=== PATIENT | female | born 1965 | race Caucasian/White ===

== ENCOUNTER 2018-10-18 15:39 | Inpatient (IN) | payer OTHER ==
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
[2018-10-18] MEDS ORDERED: NS 0.9% 1000 ML** 2,000 ML IV SCH (16:30)
[2018-10-18] MEDS ORDERED: NS 0.9% 1000 ML** 1,000 ML IV ONE (16:31)
[2018-10-18 17:04] LABS: Urine Appearance Clear; Urine Bacteria Absent (Absent); Urine Bilirubin Negative (Negative); Urine Blood Negative (Negative); Urine Color Yellow; Urine Glucose Negative (Negative); Urine Ketones Negative (Negative); Urine Nitrite Negative (Negative); Urine Protein Negative (Negative); Urine Red Blood Cell Trace(0-2/hpf) (Absent); Urine Specific Gravity 1.006 (1.010-1.030); Urine Urobilinogen Negative (Negative); Urine White Blood Cell Trace(0-5/hpf) (Absent)
[2018-10-18 17:50] LABS: Barbiturates Urine Screen None Detected (None Detect); Benzodiazepine Urine Screen None Detected (None Detect); Urine Cannabinoids Screen Presumptive Positive (None Detect)
[2018-10-18 18:13] LABS: ABS Basophils 0.1 10^3/ul (0-0.2); ABS Eosinophils 0.1 10^3/ul (0-0.6); ABS Lymphocytes 2.7 10^3/ul (1.0-4.8); ABS Monocytes 0.9 10^3/ul (0-0.8); ABS Neutrophils 3.6 10^3/ul (1.5-7.7); ABS Nucleated RBC 0 10^3/ul; Hematocrit 36 % (35-47); Hemoglobin 11.9 g/dl (12.0-16.0); Mean Corpuscular HGB Conc 33 g/dl (31-36); Mean Corpuscular Hemoglobin 28 pg (27-31); Mean Corpuscular Volume 84 fL (80-97); Mean Platelet Volume 8.1 fL (7.4-10.4); Nucleated Red Blood Cells % 0; Platelet Count 420 10^3/ul (150-450); Red Blood Count 4.25 10^6/ul (4.00-5.40); Red Cell Distribution Width 18 % (10.5-15); White Blood Count 7.4 10^3/ul (3.5-10.8)
[2018-10-18 18:17] LABS: INR 0.84 (0.77-1.02)
[2018-10-18 18:28] LABS: ALT 35 U/L (7-52); AST 30 U/L (13-39); Albumin/Globulin Ratio 1.2 (1-3); Alkaline Phosphatase 98 U/L (34-104); Anion Gap 7 mmol/L (2-11); BUN/Creatinine Ratio 26.1 (8-20); Blood Urea Nitrogen 24 mg/dL (6-24); CO2 Carbon Dioxide 22 mmol/L (22-32); Calcium 9.5 mg/dL (8.6-10.3); Chloride 109 mmol/L (101-111); Creatine Kinase 226 U/L (10-223); EGFR African American 77.3 (>60); EGFR Non-African American 63.9 (>60); Globulin 3.3 g/dL (2-4); Glucose 91 mg/dL (70-100); Magnesium 2.1 mg/dL (1.9-2.7); Sodium 138 mmol/L (135-145); Total Protein 7.3 g/dL (6.4-8.9)
[2018-10-18 18:31] LABS: HDL Cholesterol 81.6 mg/dL
[2018-10-18 18:44] LABS: Acetaminophen < 15 mcg/mL; Alcohol < 10 mg/dL (<10); Salicylate < 2.50 mg/dL (<30)
[2018-10-18 18:58] LABS: TSH (Thyroid Stimulating Horm) 2.12 mcIU/mL (0.34-5.60)
[2018-10-18] MEDS ORDERED: HYDROmorphone INJ1* 1 MG/ML SYRINGE IV ONE (19:04)
[2018-10-18] MEDS ORDERED: Iohexol 350* (CONTRAST) 500 ML MDV IV ONE (19:09)
--- NOTE | 2018-10-18 19:11 | ED ---
Progress - Progress Note Progress Note: Ultrasound IV placement procedure performed. Course/Dx - Course Course Of Treatment: Ultrasound IV placement performed. - Diagnoses Provider Diagnoses: Dysarthria, Dysphasia, Carpopedal spasm, Muscle cramp, Black stool, Hypertension, poor control, Helicobacter positive gastritis During the Visit The Following Alert/Code Occurred: Code Telles - 16:32 - Provider Notifications Time Discussed With Above Provider: 18:16 Instructed by Provider To: Other - Dr. Venegas, hospitalist, wants to wait for labs and CTA. Discharge - Sign-Out/Discharge Documenting (check all that apply): Patient Departure - Procedure note Patient Received Moderate/Deep Sedation with Procedure: No - Discharge Plan Condition: Good Disposition: ADMITTED TO [facility] - Billing Disposition and Condition Condition: GOOD Disposition: Admitted to [facility] - Attestation Statements Document Initiated by Soniae: Yes Documenting Scribe: Janey Cohen Provider For Whom Shade is Documenting (Include Credential): Dr. Kurt Thomas MD Scribe Attestation: I, Janey Cohen, scribed for Dr. Kurt Thomas MD on 11/10/18 at 0727. Scribe Documentation Reviewed: Yes Provider Attestation: The documentation as recorded by the Janey low accurately reflects the service I personally performed and the decisions made by me, Dr. Kurt Thomas MD Status of Scribe Document: Viewed
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
[2018-10-18] MEDS: Benztropine TAB* 1 MG PO SCH (22:41)
[2018-10-18] MEDS: Metoprolol Tartrate TAB* 50 mg PO SCH (22:41)
[2018-10-18] MEDS: Gabapentin CAP(*) 300 MG PO SCH (22:42)
[2018-10-18] MEDS: Cyclobenzaprine TAB* 10 MG PO PRN (22:43)
[2018-10-18] MEDS: Pantoprazole TAB * 40 MG TAB PO SCH (22:44)
[2018-10-18] MEDS: amLODIPine TAB* 5 MG PO SCH (22:44)
[2018-10-18] MEDS: QUEtiapine TAB* 100 MG PO SCH (22:44)
[2018-10-18] MEDS: cloNIDine TAB* 0.1 MG PO SCH (22:45)
[2018-10-19] MEDS: Morphine 4 MG/ML VIAL (1 ml) 4 MG/ML VIAL IV PRN ×5 (01:05→20:48)
[2018-10-19] MEDS: CMCS: Varenicline (NF) 1 MG TAB PO SCH ×2 (09:42→20:47)
[2018-10-19] MEDS: Gabapentin CAP(*) 300 MG PO SCH ×3 (09:42→20:45)
[2018-10-19] MEDS: Benztropine TAB* 1 MG PO SCH ×2 (09:42→20:45)
[2018-10-19] MEDS: QUEtiapine TAB* 25 MG PO SCH (09:42)
[2018-10-19] MEDS: Citalopram TAB* 40 MG PO SCH (09:43)
[2018-10-19] MEDS: Pantoprazole TAB * 40 MG TAB PO SCH ×2 (09:43→20:46)
[2018-10-19] MEDS: Metoprolol Tartrate TAB* 50 mg PO SCH ×2 (09:43→20:44)
[2018-10-19] MEDS: cloNIDine TAB* 0.1 MG PO SCH ×3 (09:43→20:46)
[2018-10-19] MEDS: Aspirin 81 mg CHEW TAB* 81 MG TAB.CHEW PO SCH (09:43)
[2018-10-19] MEDS: Cyclobenzaprine TAB* 10 MG PO PRN (09:43)
[2018-10-19] MEDS: amLODIPine TAB* 5 MG PO SCH (09:44)
[2018-10-19] MEDS: Cyclobenzaprine TAB* 10 MG PO SCH ×3 (13:40→20:46)
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
[2018-10-19] MEDS ORDERED: Atorvastatin* 40 MG TAB PO SCH (17:00)
[2018-10-19] MEDS: Enoxaparin(*) 40 MG/0.4 ML SYR SUBCUT SCH (17:30)
[2018-10-19] MEDS: Atorvastatin* 80 MG TAB PO SCH (17:30)
[2018-10-19] MEDS: QUEtiapine TAB* 100 MG PO SCH (20:47)
[2018-10-19] MEDS: PROCHLORPERAZINE INJ 5 MG/ML 2 ML VIAL IV PRN (20:48)
[2018-10-20] MEDS: Morphine 4 MG/ML VIAL (1 ml) 4 MG/ML VIAL IV PRN ×5 (02:43→21:40)
[2018-10-20 06:38] LABS: ABS Basophils 0 10^3/ul (0-0.2); ABS Eosinophils 0.2 10^3/ul (0-0.6); ABS Lymphocytes 2.1 10^3/ul (1.0-4.8); ABS Monocytes 0.5 10^3/ul (0-0.8); ABS Neutrophils 2.5 10^3/ul (1.5-7.7); ABS Nucleated RBC 0 10^3/ul; Eosinophil % 3.5 %; Hematocrit 37 % (35-47); Hemoglobin 11.9 g/dl (12.0-16.0); Lymphocyte % 39.5 %; Mean Corpuscular HGB Conc 32 g/dl (31-36); Mean Corpuscular Hemoglobin 27 pg (27-31); Mean Corpuscular Volume 85 fL (80-97); Mean Platelet Volume 7.9 fL (7.4-10.4); Nucleated Red Blood Cells % 0.2; Platelet Count 369 10^3/ul (150-450); Red Blood Count 4.36 10^6/ul (4.00-5.40); Red Cell Distribution Width 18 % (10.5-15); White Blood Count 5.4 10^3/ul (3.5-10.8)
[2018-10-20 07:03] LABS: Albumin 3.6 g/dL (3.2-5.2); Albumin/Globulin Ratio 1.2 (1-3); BUN/Creatinine Ratio 38.6 (8-20); Calcium 9.8 mg/dL (8.6-10.3); EGFR African American 81.3 (>60); EGFR Non-African American 67.2 (>60); Potassium 4.5 mmol/L (3.5-5.0); Total Bilirubin 0.3 mg/dL (0.2-1.0); Total Protein 6.6 g/dL (6.4-8.9)
[2018-10-20] MEDS: amLODIPine TAB* 5 MG PO SCH (07:58)
[2018-10-20] MEDS: Aspirin 81 mg CHEW TAB* 81 MG TAB.CHEW PO SCH (07:59)
[2018-10-20] MEDS: Citalopram TAB* 40 MG PO SCH (07:59)
[2018-10-20] MEDS: Cyclobenzaprine TAB* 10 MG PO SCH ×3 (08:00→21:38)
[2018-10-20] MEDS: QUEtiapine TAB* 25 MG PO SCH (08:00)
[2018-10-20] MEDS: Pantoprazole TAB * 40 MG TAB PO SCH ×2 (08:00→21:39)
[2018-10-20] MEDS: Metoprolol Tartrate TAB* 50 mg PO SCH ×2 (08:01→21:38)
[2018-10-20] MEDS: cloNIDine TAB* 0.1 MG PO SCH ×3 (08:01→21:37)
[2018-10-20] MEDS: CMCS: Varenicline (NF) 1 MG TAB PO SCH ×2 (08:01→21:49)
[2018-10-20] MEDS: Gabapentin CAP(*) 300 MG PO SCH ×3 (08:01→21:36)
[2018-10-20] MEDS: Benztropine TAB* 1 MG PO SCH ×2 (08:01→21:38)
[2018-10-20] MEDS: PROCHLORPERAZINE INJ 5 MG/ML 2 ML VIAL IV PRN ×2 (08:09→18:35)
[2018-10-20 12:19] LABS: Urine Appearance Clear; Urine Bacteria 1+ (Absent); Urine Bilirubin Negative (Negative); Urine Blood Negative (Negative); Urine Color Straw; Urine Glucose Negative (Negative); Urine Ketones Negative (Negative); Urine Nitrite Negative (Negative); Urine Protein Negative (Negative); Urine Red Blood Cell Trace(0-2/hpf) (Absent); Urine Specific Gravity 1.004 (1.010-1.030); Urine Urobilinogen Negative (Negative); Urine White Blood Cell 1+(6-10/hpf) (Absent)
--- NOTE | 2018-10-20 14:33 | ECHO ---
Patient: YOLANDE MUNIZ [facility] Rec#: [id number] : 1965 Date: 10/20/2018 Age: 53y Height: 165 cm / 65.0 in Weight: 64 kg / 141.1 lbs Sex: F BSA: 1.7 Room#: [facility] Admit Date#: 10/18/2018 Type: Inpatient Referring: Andrew Ruby Reading: Roby Quiñonez MD Director Transition: Nadia Bhakta RDCS Transthoracic Echocardiogram Indication: TIA BP: 104/62 HR: 54 Rhythm: Bradycardia Findings History: Smoker, TBI 2006, Hep C, HTN, TIA x 4, marijuana use. Technical Comments: The study quality is good. Completed at 1145. Left Ventricle: The left ventricular chamber size is normal. There is no left ventricular hypertrophy. Global left ventricular wall motion and contractility are within normal limits. There is normal left ventricular systolic function. The estimated ejection fraction is 55-60%. There is no consistent Doppler evidence of clinically significant diastolic dysfunction. Left Atrium: The left atrium is mildly dilated. Right Ventricle: Moderator Band present. The right ventricular cavity size is normal. The right ventricular global systolic function is normal. Right Atrium: The right atrial cavity size is normal. Interatrial septum appears intact without evidence of shunting. The bubble study is negative. A patent foramen ovale is not demonstrated with color Doppler and agitated contrast. Aortic Valve: The aortic valve is trileaflet. The aortic valve leaflets are mildly thickened. There is mild to moderate aortic regurgitation. There is no evidence of aortic stenosis. The measured aortic regurgitation pressure half-time is 494 msec. Mitral Valve: The mitral valve leaflets are mildly thickened. There is a trace of mitral regurgitation. There is no evidence of mitral stenosis. Tricuspid Valve: The tricuspid valve leaflets are normal. There is trace to mild tricuspid regurgitation. The right ventricular systolic pressure is estimated at 22 mmHg. No pulmonary hypertension is noted. There is no tricuspid stenosis. Pulmonic Valve: The pulmonic valve appears normal. There is a trace pulmonic regurgitation. There is no pulmonic stenosis. Pericardium: There is no significant pericardial effusion. Aorta: There is no dilatation of the ascending aorta. There is no dilatation of the aortic arch. The aortic root is normal in size. Pulmonary Artery: The main pulmonary artery appears normal. Venous: The inferior vena cava appears normal in size. There is a greater than 50% respiratory change in the inferior vena cava dimension. Contrast: Intravenous agitated saline contrast was used to assess intracardiac shunting. Images 88 and 89. Summary: There was not any prior study for comparison. Conclusions Global left ventricular wall motion and contractility are within normal limits. There is normal left ventricular systolic function. The estimated ejection fraction is 55-60%. The right ventricular global systolic function is normal. A patent foramen ovale is not demonstrated with color Doppler and agitated contrast. There is no evidence of aortic stenosis. There is mild to moderate aortic regurgitation. There is a trace of mitral regurgitation. There is trace to mild tricuspid regurgitation. No pulmonary hypertension is noted. There is no significant pericardial effusion. Measurements Name Value Normal Range RVIDd (AP) 2D 2.8 cm (0.9 - 2.6) RVDdMajor (2D) 2.9 cm (2.2 - 4.4) RAd ISD 4CH 4.8 cm (3.4 - 4.9) RA (A4C)W 3.7 cm (2.9 - 4.6) IVSd (2D) 1 cm (0.6 - 1) LVPWd (2D) 0.8 cm (0.6 - 1) LVIDd (2D) 4.5 cm (3.6 - 5.4) LVIDs (2D) 2.8 cm - LV FS (2D) 38 % (25 - 45) Aortic Annulus 1.8 cm (1.4 - 2.6) Ao root diameter (2D) 2.7 cm (2.1 - 3.5) Ascending Ao 3.3 cm (2.1 - 3.4) Aortic arch 2.6 cm (1.8 - 3.4) LA dimension (AP) 2D 3.8 cm (2.3 - 3.8) LAd ISD 4CH 5.7 cm (2.9 - 5.3) LA ISD 4CH W 4.1 cm (2.5 - 4.5) Name Value Normal Range LA ESV BP (A/L) index 30 ml/m2 - Name Value Normal Range MV E-wave Vmax 0.9 m/sec - MV deceleration time 211 msec - MV A-wave Vmax 0.6 m/sec - MV E:A ratio 1.4 ratio - LV septal e' Vmax 0.07 m/sec - LV lateral e' Vmax 0.09 m/sec - LV E:e' septal ratio 13 ratio - LV E:e' lateral ratio 10 ratio - Name Value Normal Range AV Vmax 1.3 m/sec - AV VTI 27 cm - AV peak gradient 7 mmHg - AV mean gradient 3 mmHg - LVOT Vmax 1.2 m/sec - LVOT VTI 20 cm - LVOT peak gradient 5 mmHg - LVOT mean gradient 2 mmHg - AR PHT 494 msec - CAROLINA Vmax 0.8 m/sec - Name Value Normal Range TR Vmax 2.2 m/sec - TR peak gradient 19 mmHg - RAP 3 mmHg - RVSP 22 mmHg - IVC diameter 1.1 cm - Name Value Normal Range PV Vmax 0.8 m/sec - PV peak gradient 3 mmHg -
[2018-10-20] MEDS: cefTRIAXone(*) 1 GM in NS 0.9% 50 ML* 50 ML IVPB SCH (15:13)
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
[2018-10-20] MEDS: Atorvastatin* 80 MG TAB PO SCH (17:21)
[2018-10-20] MEDS: Enoxaparin(*) 40 MG/0.4 ML SYR SUBCUT SCH (17:21)
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
[2018-10-20] MEDS: Lithium Carbonate TAB* 300 MG PO SCH (21:37)
[2018-10-20] MEDS: Diazepam TAB(*) 10 MG PO SCH (21:38)
[2018-10-21] MEDS: Morphine 4 MG/ML VIAL (1 ml) 4 MG/ML VIAL IV PRN ×5 (01:52→23:47)
[2018-10-21] MEDS: Pantoprazole TAB * 40 MG TAB PO SCH ×2 (08:01→21:02)
[2018-10-21] MEDS: Citalopram TAB* 40 MG PO SCH (08:01)
[2018-10-21] MEDS: Gabapentin CAP(*) 300 MG PO SCH ×3 (08:01→21:00)
[2018-10-21] MEDS: Metoprolol Tartrate TAB* 50 mg PO SCH ×2 (08:02→21:03)
[2018-10-21] MEDS: Benztropine TAB* 1 MG PO SCH ×2 (08:03→20:59)
[2018-10-21] MEDS: Cyclobenzaprine TAB* 10 MG PO SCH (08:03)
[2018-10-21] MEDS: cloNIDine TAB* 0.1 MG PO SCH ×3 (08:03→21:01)
[2018-10-21] MEDS: Lithium Carbonate TAB* 300 MG PO SCH ×2 (08:03→21:02)
[2018-10-21] MEDS: Aspirin 81 mg CHEW TAB* 81 MG TAB.CHEW PO SCH (08:03)
[2018-10-21] MEDS: amLODIPine TAB* 5 MG PO SCH (08:03)
[2018-10-21] MEDS: CMCS: Varenicline (NF) 1 MG TAB PO SCH ×2 (08:06→21:03)
--- NOTE | 2018-10-21 12:25 | CONSULT ---
Identification - Patient Identification Reason for Psychiatric Consultation: Patient Distress -: Patient is a 53 year old, F admitted on 10/18/18. - MHU Identification Employment Status: Disabled Hx Psychiatric Hospitalization: Yes History - Objective HPI: Tracey is seen for psychiatric follow up in her room on . She continues to complain of dystonic extrapyramidal symptoms in her right lower extremity and bilateral upper extremities with left-sided torticollis, although she feels these are not as bad as yesterday. She also complained of visual disturbances earlier today that had been on and off even prior to initiation of lithium therapy. So far she states that she's tolerating lithium well and comments that her mother took this successfully for bipolar illness. Tracey remains somatic and complaining of pain. Slept well last night with diazepam and understands that this is temporary. Exam Appearance: Well Developed/Nourished Hygiene: Normal Grooming: Fairly Well Kept Psychomotor Activities: Normal Exhibits Abnormal Movement: No Attitude and Relatedness: Cooperative Eye Contact: Good - Speech Quality: Unpressured Latencies: Normal Quantity: Appropriate Patient's Decription of Mood: "Okay" Observed Affect: Fair Affect Consistent with: Euthymia Patient's Thought Process: Coherent Thought Content: No Passive Wish, No Suicidal Planning, No Homicidal Ideation, No Paranoid Ideation Experiencing Hallucinations: No, Sensorium is Clear Type of Hallucinations: Visual: No, Auditory: No, Command: No Level of Consciousness: Alert Orientation: Yes Intact, Yes Orientated to Time, Yes Orientated to Place, Yes Orientated to Person Impulse Control: Tenuous Insight and Judgement: Fair Impression - Impression Clinical Impression: 53 y.o. , white female with a history of PTSD, TBI and bipolar affective disorder, recently moved to the area from 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 Inpatient DSM-V Dx: G24.9 Merits Inpatient Hospitalization: No BSU: Problem List - Patient Problems (1) Dystonia Current Visit: Yes Status: Acute Priority: Medium Code(s): G24.9 - DYSTONIA, UNSPECIFIED SNOMED Code(s): 93384530 Plan - Treatment Plan Treatment Plan: We have discontinued quetiapine in favor of a trial of lithium 300mg PO BID and added diazepam at night as a soporific and muscle relaxer. Continue benztropine for EPS. Can do steady state lithium level after 5 administrations. Psychiatry will continue to follow. Continued Medication Management: Different Medication Medications: Current Medications Amlodipine Besylate (Norvasc Tab*) 5 mg PO DAILY [facility] Last Admin: 10/21/18 08:03 Dose: 5 mg Aspirin (Aspirin 81 Mg Chew Tab*) 81 mg PO DAILY [facility] Last Admin: 10/21/18 08:03 Dose: 81 mg Atorvastatin Calcium (Lipitor*) 80 mg PO 1700 [facility] Last Admin: 10/20/18 17:21 Dose: 80 mg Benztropine Mesylate (Cogentin Tab*) 1 mg PO BID [facility] Last Admin: 10/21/18 08:03 Dose: 1 mg Citalopram Hydrobromide (Celexa Tab*) 40 mg PO DAILY [facility] Last Admin: 10/21/18 08:01 Dose: 40 mg Clonidine HCl (Catapres Tab*) 0.1 mg PO TID [facility] Last Admin: 10/21/18 08:03 Dose: 0.1 mg Cyclobenzaprine HCl (Flexeril Tab*) 10 mg PO TID [facility] Last Admin: 10/21/18 08:03 Dose: 10 mg Diazepam (Valium Tab(*)) 10 mg PO BEDTIME [facility] Last Admin: 10/20/18 21:38 Dose: 10 mg Enoxaparin Sodium (Lovenox(*)) 40 mg SUBCUT Q24H [facility] Last Admin: 10/20/18 17:21 Dose: 40 mg Gabapentin (Neurontin Cap(*)) 600 mg PO TID [facility] Last Admin: 10/21/18 08:01 Dose: 600 mg Ceftriaxone Sodium 1 gm/ (Sodium Chloride) 50 mls @ 200 mls/hr IVPB Q24H [facility] Stop: 10/23/18 14:59 Last Admin: 10/20/18 15:13 Dose: 200 mls/hr [place] Carbonate ([place] Carbonate Tab*) 300 mg PO BID [facility] Last Admin: 10/21/18 08:03 Dose: 300 mg Metoprolol Tartrate (Lopressor Tab*) 50 mg PO BID [facility] Last Admin: 10/21/18 08:02 Dose: 50 mg Morphine Sulfate (Morphine Vial*) 3 mg IV Q3H PRN PRN Reason: PAIN Last Admin: 10/21/18 07:59 Dose: 3 mg Pantoprazole Sodium (Protonix Tab*) 40 mg PO BID [facility] Last Admin: 10/21/18 08:01 Dose: 40 mg Prochlorperazine Edisylate (Compazine Inj*) 5 mg IV Q6H PRN PRN Reason: NAUSEA/VOMITING Last Admin: 10/20/18 18:35 Dose: 5 mg Varenicline (Chantix (Nf)) 1 mg PO BID [facility]; Protocol Last Admin: 10/21/18 08:06 Dose: 1 mg
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
[2018-10-21] MEDS ORDERED: Carisoprodol TAB* 350 MG PO PRN (13:02)
[2018-10-21] MEDS ORDERED: Polyethylene Glycol 3350* 17 GM PACKET PO PRN (13:09)
[2018-10-21] MEDS ORDERED: Magnesium Hydroxide LIQ* 30 ML UDC PO PRN (13:09)
[2018-10-21] MEDS ORDERED: Senna TAB PO PRN (13:09)
[2018-10-21 13:22] LABS: Neisseria gonorrhoeae (GC) RNA Negative (Negative)
[2018-10-21 13:38] LABS: Trichomonas vaginalis Result Negative (Negative)
[2018-10-21] MEDS: cefTRIAXone(*) 1 GM in NS 0.9% 50 ML* 50 ML IVPB SCH (14:35)
[2018-10-21] MEDS ORDERED: Acetaminophen TAB* 325 MG PO PRN (15:57)
[2018-10-21] MEDS: Atorvastatin* 80 MG TAB PO SCH (16:07)
[2018-10-21] MEDS: Enoxaparin(*) 40 MG/0.4 ML SYR SUBCUT SCH (16:08)
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
[2018-10-21] MEDS: Diazepam TAB(*) 10 MG PO SCH (21:02)
[2018-10-21] MEDS: Docusate CAP* 100 MG PO SCH (21:03)
[2018-10-21] MEDS: Magnesium Hydroxide LIQ* 30 ML UDC PO SCH (21:04)
[2018-10-21] MEDS: Ondansetron INJ* 2 MG/ML VIAL IV PRN (21:05)
[2018-10-22] MEDS: Morphine 4 MG/ML VIAL (1 ml) 4 MG/ML VIAL IV PRN ×3 (04:45→12:30)
[2018-10-22 05:30] LABS: ABS Basophils 0 10^3/ul (0-0.2); ABS Eosinophils 0.2 10^3/ul (0-0.6); ABS Lymphocytes 1.4 10^3/ul (1.0-4.8); ABS Monocytes 0.7 10^3/ul (0-0.8); ABS Neutrophils 3.6 10^3/ul (1.5-7.7); ABS Nucleated RBC 0 10^3/ul; Eosinophil % 3.2 %; Hematocrit 39 % (35-47); Lymphocyte % 23.4 %; Mean Corpuscular HGB Conc 31 g/dl (31-36); Mean Corpuscular Hemoglobin 27 pg (27-31); Mean Corpuscular Volume 87 fL (80-97); Mean Platelet Volume 7.8 fL (7.4-10.4); Nucleated Red Blood Cells % 0; Platelet Count 330 10^3/ul (150-450); Red Blood Count 4.47 10^6/ul (4.00-5.40); Red Cell Distribution Width 18 % (10.5-15); White Blood Count 5.9 10^3/ul (3.5-10.8)
[2018-10-22 05:44] LABS: Calcium 9.8 mg/dL (8.6-10.3); EGFR African American 77.3 (>60); EGFR Non-African American 63.9 (>60); Potassium 4.3 mmol/L (3.5-5.0)
[2018-10-22] MEDS: CMCS: Varenicline (NF) 1 MG TAB PO SCH (08:52)
[2018-10-22] MEDS: Magnesium Hydroxide LIQ* 30 ML UDC PO SCH (08:52)
[2018-10-22] MEDS: Gabapentin CAP(*) 300 MG PO SCH ×2 (08:53→15:01)
[2018-10-22] MEDS: Benztropine TAB* 1 MG PO SCH (08:54)
[2018-10-22] MEDS: Pantoprazole TAB * 40 MG TAB PO SCH (08:54)
[2018-10-22] MEDS: amLODIPine TAB* 5 MG PO SCH (08:54)
[2018-10-22] MEDS: cloNIDine TAB* 0.1 MG PO SCH ×2 (08:54→15:04)
[2018-10-22] MEDS: Lithium Carbonate TAB* 300 MG PO SCH (08:55)
[2018-10-22] MEDS: Metoprolol Tartrate TAB* 50 mg PO SCH (08:55)
[2018-10-22] MEDS: Citalopram TAB* 40 MG PO SCH (08:55)
[2018-10-22] MEDS: Docusate CAP* 100 MG PO SCH (08:55)
[2018-10-22] MEDS: Aspirin 81 mg CHEW TAB* 81 MG TAB.CHEW PO SCH (08:55)
--- NOTE | 2018-10-22 11:57 | CONSULT ---
Identification - Patient Identification Reason for Psychiatric Consultation: Patient Distress -: Patient is a 53 year old, F admitted on 10/20/18. - MHU Identification Employment Status: Disabled Hx Psychiatric Hospitalization: Yes History - Objective HPI: Tracey is seen for follow up. She appears in good spirits but continues to endorse spastic tightening in her upper and lower extremities. "It's better than when I came in but it's not completely gone." She is tolerating lithium well so far but misses the sedative effect of quetiapine at night. "It would just knock me out. I never had to worry about sleeping." The patient remains stressed about psychosocial factors such as financial strain, moving into a new apartment and getting [place] ent[place]. She denies thoughts of self-harm. Exam Appearance: Well Developed/Nourished Hygiene: Normal Grooming: Fairly Well Kept Psychomotor Activities: Normal Exhibits Abnormal Movement: No Attitude and Relatedness: Cooperative Eye Contact: Good - Speech Quality: Unpressured Latencies: Normal Quantity: Appropriate Patient's Decription of Mood: "Okay" Observed Affect: Fair Affect Consistent with: Euthymia Patient's Thought Process: Coherent Thought Content: No Passive Wish, No Suicidal Planning, No Homicidal Ideation, No Paranoid Ideation Experiencing Hallucinations: No, Sensorium is Clear Type of Hallucinations: Visual: No, Auditory: No, Command: No Level of Consciousness: Alert Orientation: Yes Intact, Yes Orientated to Time, Yes Orientated to Place, Yes Orientated to Person Impulse Control: Tenuous Insight and Judgement: Fair Impression - Impression Clinical Impression: 53 y.o. , white female with a history of PTSD, TBI and bipolar affective disorder, recently moved to the area from [facility], admitted to Hospitalist service with complaints of bilateral muscle spasms presumed to be neuroleptic-induced dystonia. Inpatient DSM-V Dx: G24.9 Merits Inpatient Hospitalization: No BSU: Problem List - Patient Problems (1) Dystonia Current Visit: Yes Status: Acute Priority: Medium Code(s): G24.9 - DYSTONIA, UNSPECIFIED SNOMED Code(s): 46149220 Plan - Treatment Plan Treatment Plan: We have discontinued quetiapine in favor of a trial of lithium 300mg PO BID and added diazepam at night as a soporific and muscle relaxer. Continue benztropine for EPS. Will check lithium level in AM. Psychiatry will continue to follow. Continued Medication Management: Different Medication Medications: Current Medications Acetaminophen (Tylenol Tab*) 650 mg PO Q6H PRN PRN Reason: PAIN Last Admin: 10/21/18 16:08 Dose: 650 mg Amlodipine Besylate (Norvasc Tab*) 5 mg PO DAILY [facility] Last Admin: 10/22/18 08:54 Dose: 5 mg Aspirin (Aspirin 81 Mg Chew Tab*) 81 mg PO DAILY [facility] Last Admin: 10/22/18 08:55 Dose: 81 mg Atorvastatin Calcium (Lipitor*) 80 mg PO 1700 [facility] Last Admin: 10/21/18 16:07 Dose: 80 mg Benztropine Mesylate (Cogentin Tab*) 1 mg PO BID [facility] Last Admin: 10/22/18 08:54 Dose: 1 mg Carisoprodol (Soma Tab*) 350 mg PO Q8H PRN PRN Reason: pain Last Admin: 10/21/18 21:01 Dose: 350 mg Citalopram Hydrobromide (Celexa Tab*) 40 mg PO DAILY [facility] Last Admin: 10/22/18 08:55 Dose: 40 mg Clonidine HCl (Catapres Tab*) 0.1 mg PO TID [facility] Last Admin: 10/22/18 08:54 Dose: 0.1 mg Diazepam (Valium Tab(*)) 10 mg PO BEDTIME [facility] Last Admin: 10/21/18 21:02 Dose: 10 mg Docusate Sodium (Colace Cap*) 100 mg PO BID [facility] Last Admin: 10/22/18 08:55 Dose: 100 mg Enoxaparin Sodium (Lovenox(*)) 40 mg SUBCUT Q24H [facility] Last Admin: 10/21/18 16:08 Dose: 40 mg Gabapentin (Neurontin Cap(*)) 600 mg PO TID [facility] Last Admin: 10/22/18 08:53 Dose: 600 mg Ceftriaxone Sodium 1 gm/ (Sodium Chloride) 50 mls @ 200 mls/hr IVPB Q24H [facility] Stop: 10/23/18 14:59 Last Admin: 10/21/18 14:35 Dose: 200 mls/hr Kevil Carbonate (Kevil Carbonate Tab*) 300 mg PO BID [facility] Last Admin: 10/22/18 08:55 Dose: 300 mg Magnesium Hydroxide (Milk Of Magnesia Liq*) 30 ml PO BID [facility] Last Admin: 10/22/18 08:52 Dose: 30 ml Magnesium Hydroxide (Milk Of Magnesia Liq*) 30 ml PO BID PRN PRN Reason: CONSTIPATION Last Admin: 10/21/18 14:35 Dose: 30 ml Metoprolol Tartrate (Lopressor Tab*) 50 mg PO BID [facility] Last Admin: 10/22/18 08:55 Dose: 50 mg Morphine Sulfate (Morphine Vial*) 2 mg IV Q4H PRN PRN Reason: PAIN Last Admin: 10/22/18 08:51 Dose: 2 mg Ondansetron HCl (Zofran Inj*) 4 mg IV Q6H PRN PRN Reason: NAUSEA Last Admin: 10/21/18 21:05 Dose: 4 mg Pantoprazole Sodium (Protonix Tab*) 40 mg PO BID [facility] Last Admin: 10/22/18 08:54 Dose: 40 mg Polyethylene Glycol/Electrolytes (Miralax*) 17 gm PO DAILY PRN PRN Reason: CONSTIPATION Senna (Senokot Tab*) 1 tab PO BEDTIME PRN PRN Reason: CONSTIPATION Last Admin: 10/21/18 21:01 Dose: 1 tab Varenicline (Chantix (Nf)) 1 mg PO BID [facility]; Protocol Last Admin: 10/22/18 08:52 Dose: 1 mg
[2018-10-22] MEDS: Ondansetron INJ* 2 MG/ML VIAL IV PRN (12:30)
[2018-10-22] MEDS: cefTRIAXone(*) 1 GM in NS 0.9% 50 ML* 50 ML IVPB SCH (15:04)
[2018-10-22 15:12] VITALS: BP 114/81
--- NOTE | 2018-10-22 20:13 | DS ---
CC: DYLAN Griffiths; Dr. Nayan Wen * DISCHARGE SUMMARY: DATE OF ADMISSION: 10/18/18 DATE OF DISCHARGE: 10/22/18 PRIMARY CARE PROVIDERS: Tashia RICHARDSON, and Dr. Nayan Wen ATTENDING PHYSICIAN: Dr. Lynn Liu * (dictated by DYLAN Green) PRIMARY DIAGNOSIS: Drug-induced dystonia. SECONDARY DIAGNOSES: 1. Hypertension. 2. Helicobacter pylori with gastrointestinal bleed. 3. Traumatic brain injury, 2005. 4. History of transient ischemic attack x4. 5. Hepatitis C. 6. History of cervical cancer. STUDIES WHILE IN THE HOSPITAL: 1. Brain CT, 10/18/18. Impression: No acute intracranial pathology. 2. Chest x-ray, 10/18/18. Impression: No active cardiopulmonary disease. 3. Head CTA, 10/18/18. Impression: No occlusion or hemodynamically significant stenosis in the arteries of the neck. 4. Brain MRI, 10/19/18. Impression: No acute intracranial abnormality. Mild chronic small vessel ischemic disease. 5. Transthoracic echocardiogram, 10/19/18. Conclusion: Global left ventricular wall motion and contractility are within normal limits. There is normal left ventricular systolic function. The estimated ejection fraction is 55% to 60%, right ventricular global systolic function is normal. A patent foramen ovale is not demonstrated with color Doppler and agitated contrast. There is no evidence of aortic stenosis. There is [id number]-[id number] aortic regurgitation. There is a trace of mitral regurgitation. There is trace-to- mild tricuspid regurgitation. No pulmonary hypertension is noted. There is no significant pericardial effusion. DISCHARGE MEDICATIONS: Home medications: 1. Methocarbamol tab 500 mg p.o. b.i.d. 2. Benztropine 1 mg p.o. b.i.d. 3. Gabapentin 600 mg p.o. t.i.d. 4. Clonidine 0.1 mg p.o. 5. Omeprazole 40 mg p.o. b.i.d. 6. Metoprolol tartrate 50 mg p.o. b.i.d. 7. Escitalopram 20 mg p.o. daily. 8. Atorvastatin 40 mg p.o. at bedtime. New home medication: 1. Seat Pleasant carbonate 300 mg p.o. b.i.d. HISTORY OF PRESENT ILLNESS/HOSPITAL COURSE: Ms. Thorne is a 53-year-old female with a past medical history as described above, who presented to the ER on 10/18/18 with complaints of muscle spasms in both her hands and her right foot as well as her throat. She also complained of difficulty with speaking. She called her son at that time and he states that her speech was off and advised her to go to the ER. She was evaluated and showed no signs of acute stroke. She was assessed by Neuro and Psych during her admission. It was noted that the patient had previously been on Seroquel 100 mg and had recently been reduced to a dose of 50 mg prior to the onset of symptoms. Psychiatry recommended that the patient be switched from Seroquel to [place] at least temporarily. It was also noted that the patient was taking Compazine at home and was also given Compazine while in the hospital. Compazine was discontinued , as it is also associated with extrapyramidal symptoms. After a couple of days without Seroquel, the patient's symptoms started to slowly resolve. She continued to have muscle spasms that were intermittent in both of her hands as well as the right lower extremity, but they were less frequent. At the time of discharge, the patient complained of low back pain, which is chronic. She also complained of recurrent spasms in the upper and lower extremities. She denied chest pain or shortness of breath. She denied fever or coughing. She denies calf tenderness or swelling in the lower extremities. Ms. Thorne is stable for discharge. PHYSICAL EXAMINATION: Her vital signs are temperature of 97.7, heart rate of 62 , respiratory rate of 16, oxygen saturation of 97% on room air, blood pressure is 114/81. General: Ms. Thorne is a well-developed, well-nourished, white woman, who is sitting up in bed. She appears well and is in no acute distress. HEENT: Her visual hua are grossly intact. Pupils are equally round and reactive to light. Extraocular movements are intact. Sclerae are without icterus. Hearing is grossly intact. Oral mucous membranes are moist and without lesions. Pharynx is clear. Neck: Thyroid is not palpable. Trachea is at midline. There is no lymphadenopathy. Respiratory: Symmetrical chest expansion with no use of accessory muscles, regular effort. Lungs are clear to auscultation. There are no rhonchi, wheezes, or rubs. Cardiovascular: Regular rate and rhythm. S1 and S2 is present without murmurs, rubs, or gallops. There is no JVD. Abdomen: Bowel sounds in all quadrants. Abdomen is flat, soft and nondistended. There is no palpable masses. No hepatosplenomegaly. Abdomen is nontender to palpation. Extremities: Skin is warm and smooth bilaterally. There is no clubbing or cyanosis. There is no edema. Radial and pedal pulses are 2+ bilaterally. Neuro: The patient is awake , alert, and oriented x3. Cranial nerves II through XII are grossly intact. The patient is able to move all of her extremities. She has a steady gait. She has a mild right foot drag when walking, but this is her baseline. DISCHARGE PLAN: Ms. Thorne will be discharged home. ACTIVITY: As tolerated. Encouraged to walk. DIET: Heart healthy. MEDICATIONS: As above. EDUCATION: 1. Follow up with primary care physician in 4 to 7 days regarding recent hospitalization and lithium refill. 2. Follow up with [facility] where the patient is already established for refill on lithium. The patient was discharged with a 15-day supply and will need a refill and to see if she needs to continue lithium. 3. Consider seeking prenatal genetic counselor from pain clinic regarding chronic back pain. 4. We recommend following up with Physical therapy. 5. Seat Pleasant blood draw tomorrow. This will be drawn at the patient's home by [facility] who will go to the patient's home. 6. Return to the ER or nearest hospital if you experience any worsening of symptoms, shortness of breath, lightheadedness, dizziness, chest discomfort, high fevers, chills, night sweats, loss of consciousness or any other worrisome sign or symptom. This is a summarized report of a complex medical history and hospital stay. For further details, please see the entire medical record. TIME SPENT: Approximately 40 minutes was spent on this discharge, greater than half of that time was spent [id number] with the patient discussing discharge plans and instructions. DYLAN ANDREA [id number]/[facility] #: [id number] MINDY
== END 2018-10-22 17:15 | disposition home or self-care (01) | DRG 42 ==
LOC: ED 15:39 → MEDTELE 20:12 → OBSVTOIN 10-20 08:00 → MEDTELE 10-20 16:47
PROVIDERS: ADMIT Internal Medicine; ATTEND Internal Medicine
DX: G24.09 Other drug induced dystonia (principal); K29.61 Other gastritis with bleeding; N39.0 Urinary tract infection, site not specified; M21.372 Foot drop, left foot; M21.371 Foot drop, right foot; I10 Essential (primary) hypertension; R40.2362 Coma scale, best motor response, obeys commands, at arrival to emergency department; R40.2142 Coma scale, eyes open, spontaneous, at arrival to emergency department; R40.2252 Coma scale, best verbal response, oriented, at arrival to emergency department; R47.1 Dysarthria and anarthria; R47.02 Dysphasia; F17.210 Nicotine dependence, cigarettes, uncomplicated; M62.838 Other muscle spasm; B96.81 Helicobacter pylori [H. pylori] as the cause of diseases classified elsewhere; R47.81 Slurred speech; G89.29 Other chronic pain; M54.9 Dorsalgia, unspecified; I08.3 Combined rheumatic disorders of mitral, aortic and tricuspid valves; K59.00 Constipation, unspecified; F43.10 Post-traumatic stress disorder, unspecified; F31.9 Bipolar disorder, unspecified; R51 Headache; D64.9 Anemia, unspecified; F12.99 Cannabis use, unspecified with unspecified cannabis-induced disorder; R29.706 NIHSS score 6; T43.595A Adverse effect of other antipsychotics and neuroleptics, initial encounter; T43.3X5A Adverse effect of phenothiazine antipsychotics and neuroleptics, initial encounter; Z88.8 Allergy status to other drugs, medicaments and biological substances; Z88.0 Allergy status to penicillin; Z91.030 Bee allergy status; Z87.11 Personal history of peptic ulcer disease; Z86.73 Personal history of transient ischemic attack (TIA), and cerebral infarction without residual deficits; Z82.3 Family history of stroke; Z80.3 Family history of malignant neoplasm of breast; Z85.41 Personal history of malignant neoplasm of cervix uteri; Y92.9 Unspecified place or not applicable; Z91.410 Personal history of adult physical and sexual abuse; Z56.0 Unemployment, unspecified; Z86.14 Personal history of Methicillin resistant Staphylococcus aureus infection; Z90.710 Acquired absence of both cervix and uterus; Z86.19 Personal history of other infectious and parasitic diseases
CPT/HCPCS: 36415; 70450; 70496; 70498; 70551; 71045; 80048; 80053; 80061; 80307; 80320; 80329; 81003; 81015; 82140; 82272; 82550; 82947; 83605; 83735; 84100; 84443; 84484; 85025; 85610; 85730; 86141; 86850; 86900; 86901; 87077; 87086; 87186; 87480; 87491; 87510; 87591; 87624; 87641; 87661; 88175; 90686; 93005; 93306; 99285; 99406; A9270-GY; G0145; G0378; G0480; J0696; J0780; J1170; J1650; J2270; J2405; Q9967

== ENCOUNTER 2019-04-01 16:02 | Inpatient (IN) | payer MEDICARE, OTHER ==
[2019-04-01] MEDS ORDERED: NS 0.9% 1000 ML** 1,000 ML IV ONE (16:27)
[2019-04-01] MEDS ORDERED: Ondansetron INJ* 2 MG/ML VIAL IV ONE (16:28)
--- NOTE | 2019-04-01 16:28 | ED ---
Syncope/Near Syncope - HPI Summary HPI Summary: The pt was seen at 1619. 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 The pt was at home and stood up and passed out. She felt very confused after falling. She also notes abd pain, posterior head pain, and neck pain, and rates her pain severity a 9/10. She currently reports dizziness described as room-spinning, weakness, fatigued but denies any CP. This was her first episode of syncope. - History Of Current Complaint Chief Complaint: EDSyncope Time Seen by Provider: 04/01/19 16:19 Hx Obtained From: Patient Onset/Duration: Sudden Onset, Lasting Hours, Still Present Context: Loss Of Consciousness Activity At Onset: Other - standing up Associated Head Trauma: Yes Aggravating Factor(s): Nothing Alleviating Factor(s): Nothing Associated Signs And Symptoms: Dizzy - room spinning, Headache, Vomiting, Weakness, Other - positive - fatigue, abd pain, neck pain, posterior head pain, nausea - Allergies/Home Medications Allergies/Adverse Reactions: Allergies Allergy/AdvReac Type Severity Reaction Status Date / Time bee venom protein (honey bee) Allergy Severe Hives Verified 04/01/19 16:08 Penicillins Allergy Severe Hives Verified 04/01/19 16:08 ketorolac [From Toradol] Allergy Intermediate Vomiting Verified 04/01/19 16:08 ketamine Allergy Unknown Verified 04/01/19 16:08 Reaction Details morphine Allergy Hives Verified 04/01/19 18:18 PMH/Surg Hx/FS Hx/Imm Hx Endocrine/Hematology History: Denies: Hx Diabetes Cardiovascular History: Reports: Hx Hypertension Denies: Hx Pacemaker/ICD GI History: Reports: Hx Ulcer - gastric ulcer and H pylori positive , Other GI Disorders - Hep C Musculoskeletal History: Reports: Hx Back Problems, Other Musculoskeletal History Sensory History: Denies: Hx Contacts or Glasses, Hx Hearing Aid Opthamlomology History: Denies: Hx Contacts or Glasses Neurological History: Reports: Hx Transient Ischemic Attacks (TIA), Other Neuro Impairments/Disorders - hx bilateral foot drop Psychiatric History: Reports: Hx Depression, Other Psychiatric Issues/Disorders - on Abilify and Clonidine, seroquel, lexapro Denies: Hx Panic Disorder - Surgical History Surgery Procedure, Year, and Place: 9 spinal surgeries Infectious Disease History: Yes Infectious Disease History: Reports: Hx Hepatitis - C, Hx of Known/Suspected MRSA Denies: Traveled Outside the [place] in Last 30 Days - Family History Known Family History: Positive: Other - brother and father had strokes - Social History Alcohol Use: None Hx Substance Use: Yes Substance Use Type: Reports: Marijuana Hx Tobacco Use: Yes Smoking Status (MU): Light Every Day Tobacco Smoker Type: Cigarettes Review of Systems Positive: Fatigue Negative: Chest Pain Positive: Abdominal Pain, Vomiting, Nausea Musculoskeletal: Other - Positive - posterior head pain, neck pain Neurological: Other - positive - dizziness "room spinning" Positive: Headache, Weakness All Other Systems Reviewed And Are Negative: Yes Physical Exam - Summary Physical Exam Summary: Appearance: Well-appearing, Well-nourished, lying in bed comfortably Skin: Warm, dry, no obvious rash Eyes: sclera anicteric, no conjunctival pallor ENT: mucous membranes moist, pharynx appears normal Neck: Supple, tenderness in midline and middle cervical spine Respiratory: Clear to auscultation, no signs of respiratory distress Cardiovascular: Normal S1, S2. No murmurs. Normal distal pulses in tibial and radial bilaterally. Abdomen: Soft, nontender, normal active bowel sounds present Musculoskeletal: Normal, Strength/ROM Intact Neurological: A&Ox3, awake and alert, mentation is normal, speech is fluent and appropriate, GCS = 15 (see scale) Psychiatric: affect is normal, does not appear anxious or depressed Triage Information Reviewed: Yes Vital Signs On Initial Exam: Initial Vitals Temp Pulse Resp BP Pulse Ox 97.5 F 63 18 126/81 96 04/01/19 16:04 04/01/19 16:04 04/01/19 16:04 04/01/19 16:04 04/01/19 16:04 Vital Signs Reviewed: Yes - Alexey Coma Scale Best Eye Response: 4 - Spontaneous Best Motor Response: 6 - Obeys Commands Best Verbal Response: 5 - Oriented Coma Scale Total: 15 Diagnostics - Vital Signs Vital Signs Temp Pulse Resp BP Pulse Ox 04/01/19 16:04 97.5 F 63 18 126/81 96 - Laboratory Result Diagrams: 04/02/19 16:19 04/02/19 16:19 Lab Statement: Any lab studies that have been ordered have been reviewed, and results considered in the medical decision making process. - CT Brain CT CT Interpretation Completed By: Radiologist Summary of CT Findings: IMPRESSION: NO ACUTE INTRACRANIAL PATHOLOGY. ED Physician has reviewed this report. Cervical Spine CT CT Interpretation Completed By: Radiologist Summary of CT Findings: IMPRESSION: STATUS POST SPINAL FUSION. NO ACUTE OSSEOUS INJURY TO THE CERVICAL SPINE. ED Physician has reviewed this report. - EKG 1601 Cardiac Rate: NL - 60 bpm EKG Rhythm: Sinus Rhythm Summary of EKG Findings: NSR at 60 BPM, P waves, QRS complex, and T waves are within normal limits, T waves and intervals are normal, no ischemic changes. This is a normal EKG. Re-Evaluation - Re-Evaluation First Eval Re-Evaluation Time: 17:00 Comment: I discussed results thus far with patient. 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 The pt was at home and stood up and passed out. She felt very confused after falling. She also notes abd pain, posterior head pain, and neck pain, and rates her pain severity a 9/10. She currently reports dizziness described as room-spinning, weakness, headache, fatigued but denies any CP. This was her first episode of syncope. The physical exam is only notable for tenderness in midline and middle cervical spine. Test results are normal except for Hgb @ 11.3, Hct @ 34, RDW @ 18, Absolute monos @ 0.9, Total Protein @ 6.1 Trace Ur Leukocyte Esterase, Present Ur Squamous Epith Cells. An EKG reveals NSR at 60 BPM, P waves, QRS complex, and T waves are within normal limits, T waves and intervals are normal, no ischemic changes. This is a normal EKG. A Brain CT reveals: NO ACUTE INTRACRANIAL PATHOLOGY. A Cervical Spine CT reveals: STATUS POST SPINAL FUSION. NO ACUTE OSSEOUS INJURY TO THE CERVICAL SPINE. Pt will be signed out to Dr. Brandt at the 04/01/191899 shift change pending Brain MRI and disposition. - Diagnoses Provider Diagnoses: Vertigo Discharge - Sign-Out/Discharge Documenting (check all that apply): Sign-Out Patient Signing out patient TO: Aliya Brandt - Pt will be signed out to Dr. Brandt at the 04/01/191899 shift change pending Brain MRI and disposition. Patient Received Moderate/Deep Sedation with Procedure: No - Discharge Plan Condition: Fair Disposition: ADMITTED TO [facility] - Billing Disposition and Condition Condition: FAIR Disposition: Admitted to [facility] - Attestation Statements Document Initiated by Shade: Yes Documenting Scribe: Donte Bal Provider For Whom Shade is Documenting (Include Credential): Vishnu Cross MD Scribe Attestation: Donte Greer, scribed for Vishnu Cross MD on 04/03/19 at 0524. Scribe Documentation Reviewed: Yes Provider Attestation: The documentation as recorded by the mereibeDonte accurately reflects the service I personally performed and the decisions made by me, Vishnu Cross MD Status of Scribe Document: Viewed
[2019-04-01] MEDS: Morphine 4 MG/ML VIAL (1 ml) 4 MG/ML VIAL IV PRN ×2 (17:12→19:58)
[2019-04-01 17:23] LABS: ABS Eosinophils 0.1 10^3/ul (0-0.6); ABS Lymphocytes 2.6 10^3/ul (1.0-4.8); ABS Monocytes 0.9 10^3/ul (0-0.8); ABS Neutrophils 4.9 10^3/ul (1.5-7.7); Eosinophil % 1.3 %; Hematocrit 34 % (35-47); Hemoglobin 11.3 g/dL (12.0-16.0); Lymphocyte % 30.1 %; Mean Corpuscular HGB Conc 34 g/dL (31-36); Mean Corpuscular Hemoglobin 29 pg (27-31); Mean Corpuscular Volume 87 fL (80-97); Mean Platelet Volume 8.7 fL (7.4-10.4); Platelet Count 268 10^3/uL (150-450); Red Blood Count 3.87 10^6 /uL (3.70-4.87); Red Cell Distribution Width 18 % (10-15); White Blood Count 8.5 10^3/uL (3.5-10.8)
[2019-04-01 17:35] LABS: Urine Appearance Clear; Urine Bacteria Absent (Absent); Urine Bilirubin Negative (Negative); Urine Blood Negative (Negative); Urine Color Yellow; Urine Glucose Negative (Negative); Urine Ketones Negative (Negative); Urine Nitrite Negative (Negative); Urine Protein Negative (Negative); Urine Red Blood Cell Absent (Absent); Urine Specific Gravity 1.019 (1.010-1.030); Urine Squamous Epithelial Cell Present (Absent); Urine Urobilinogen Negative (Negative); Urine White Blood Cell Trace(0-5/hpf) (Absent)
[2019-04-01] MEDS ORDERED: diPHENhydraMINE IV* 50 MG/ML 1 ml VIAL (BENADRYL) IV ONE (17:37)
[2019-04-01 17:43] LABS: Albumin 3.6 g/dL (3.2-5.2); Albumin/Globulin Ratio 1.4 (1-3); Calcium 8.9 mg/dL (8.6-10.3); EGFR African American 90.8 (>60); Globulin 2.5 g/dL (2-4); Potassium 3.5 mmol/L (3.5-5.0); Total Bilirubin 0.4 mg/dL (0.2-1.0); Total Protein 6.1 g/dL (6.4-8.9)
[2019-04-01] MEDS ORDERED: diPHENhydraMINE IV* 50 MG/ML 1 ml VIAL (BENADRYL) ONE (17:50)
[2019-04-01 18:10] LABS: TSH (Thyroid Stimulating Horm) 0.36 mcIU/mL (0.34-5.60)
[2019-04-01] MEDS ORDERED: LORazepam TAB(*) 1 MG PO ONE (18:24)
--- NOTE | 2019-04-01 19:16 | ED ---
Progress - Progress Note Progress Note: This patient was signed out from Dr. Cross to Dr. Brandt at shift change at 1900 on 04/01/19, pending disposition, awaiting Brain MRI. Brain MRI reveals, IMPRESSION: No acute intracranial abnormality. The pt can not walk on her own properly. The patient will be admitted with Dx of vertigo. - Results/Orders Results/Orders: Brain MRI reveals, per radiologist, IMPRESSION: No acute intracranial abnormality. ED physician has reviewed this radiology report. Course/Dx - Course Course Of Treatment: This patient was signed out from Dr. Cross awaiting Brain MRI. Brain MRI reveals, IMPRESSION: No acute intracranial abnormality. Pt will be given valium. Pt is still unable to walk, and is very unsteady on her feet. Discussed case with Dr. Saavedra, who accepts pt for admission. Pt will be admitted. - Diagnoses Provider Diagnoses: Vertigo - Provider Notifications Discussed Care Of Patient With: Maria Ines Saavedra Time Discussed With Above Provider: 22:55 Instructed by Provider To: Other - Discussed case with Dr. Saavedra, who accepts pt for admission. Discharge - Sign-Out/Discharge Documenting (check all that apply): Patient Departure - Admit Patient Received Moderate/Deep Sedation with Procedure: No - Discharge Plan Condition: Fair Disposition: ADMITTED TO [facility] Referrals: Jamal MOHAN,Liu Pratt [Primary Care Provider] - - Attestation Statements Document Initiated by Scribe: Yes Documenting Scribe: Nimo Freeman Provider For Whom Scribe is Documenting (Include Credential): Dr. Aliya Brandt MD Scribe Attestation: Nimo Greer scribed for Dr. Aliya Brandt MD on 04/01/19 at 2353. Status of Scribe Document: Ready
[2019-04-01] MEDS ORDERED: Diazepam INJ (NF) 5 MG/ML 10 ML VIAL (50 MG TOTAL) IV ONE (20:17)
[2019-04-01] MEDS ORDERED: Diazepam INJ CARPUJECT* 5 MG/ML IV ONE (20:17)
[2019-04-01] MEDS ORDERED: Metoclopramide IV* 5 MG/ML 2 ML VIAL IV SLOW PU ONE (23:15)
[2019-04-01] MEDS ORDERED: Butalb/Acetamin/Caff TAB* 1 TAB PO ONE (23:16)
[2019-04-01] MEDS ORDERED: oxyCODONE/Acetamin 5/325 MG* TAB PO PRN (23:52)
[2019-04-01] MEDS ORDERED: Albuterol HFA INHALER* 8 gm MDI INH PRN (23:55)
[2019-04-02] MEDS: Diazepam TAB(*) 5 MG PO SCH ×5 (00:50→20:30)
[2019-04-02] MEDS: Enoxaparin(*) 40 MG/0.4 ML SYR SUBCUT SCH ×2 (00:50→01:09)
[2019-04-02] MEDS: Morphine 4 MG/ML VIAL (1 ml) 4 MG/ML VIAL IV PRN ×2 (01:08→04:48)
[2019-04-02] MEDS: Ondansetron INJ* 2 MG/ML VIAL IV PRN ×4 (01:08→20:32)
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
[2019-04-02] MEDS ORDERED: oxyCODONE/Acetamin 5/325 MG* TAB PO PRN (09:36)
[2019-04-02] MEDS: Meclizine TAB* 12.5 MG PO PRN (10:57)
[2019-04-02] MEDS: Aspirin 81 mg CHEW TAB* 81 MG TAB.CHEW PO SCH (12:31)
[2019-04-02] MEDS: Metoprolol Tartrate TAB* 50 mg PO SCH ×2 (12:32→20:29)
[2019-04-02] MEDS: Pantoprazole TAB * 40 MG TAB PO SCH ×2 (12:32→20:30)
[2019-04-02] MEDS: Carisoprodol TAB* 350 MG PO SCH ×4 (12:32→20:27)
[2019-04-02] MEDS: Gabapentin CAP(*) 300 MG PO SCH ×3 (12:32→20:29)
[2019-04-02] MEDS: Escitalopram * 20 MG TABLET PO SCH ×2 (12:32→20:28)
[2019-04-02] MEDS: cloNIDine TAB* 0.1 MG PO SCH ×3 (12:32→20:29)
[2019-04-02] MEDS: Metoclopramide IV* 5 MG/ML 2 ML VIAL IV PRN (13:22)
[2019-04-02] MEDS: oxyCODONE TAB* 5 MG TAB PO PRN (15:27)
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
[2019-04-02 16:45] LABS: BUN/Creatinine Ratio 15.8 (8-20); Calcium 9.2 mg/dL (8.6-10.3); EGFR African American 96.3 (>60); EGFR Non-African American 79.6 (>60); Potassium 4.2 mmol/L (3.5-5.0)
[2019-04-02 16:46] LABS: ABS Basophils 0.1 10^3/ul (0-0.2); ABS Eosinophils 0.1 10^3/ul (0-0.6); ABS Lymphocytes 2.2 10^3/ul (1.0-4.8); ABS Monocytes 0.7 10^3/ul (0-0.8); Eosinophil % 2.1 %; Hematocrit 35 % (35-47); Hemoglobin 11.4 g/dL (12.0-16.0); Lymphocyte % 35.6 %; Mean Corpuscular HGB Conc 33 g/dL (31-36); Mean Corpuscular Hemoglobin 29 pg (27-31); Mean Corpuscular Volume 89 fL (80-97); Nucleated Red Blood Cells % 0.1; Platelet Count 185 10^3/uL (150-450); Red Blood Count 3.91 10^6 /uL (3.70-4.87); Red Cell Distribution Width 19 % (10-15); White Blood Count 6.1 10^3/uL (3.5-10.8)
[2019-04-02] MEDS: Atorvastatin* 40 MG TAB PO SCH (20:27)
[2019-04-02] MEDS: Melatonin 3 MG TAB PO SCH (20:30)
[2019-04-03] MEDS: oxyCODONE TAB* 5 MG TAB PO PRN ×4 (03:10→21:00)
[2019-04-03] MEDS: Enoxaparin(*) 40 MG/0.4 ML SYR SUBCUT SCH (03:11)
[2019-04-03 07:12] LABS: CO2 Carbon Dioxide 23 mmol/L (22-32); Calcium 9.6 mg/dL (8.6-10.3); Chloride 108 mmol/L (101-111); Sodium 139 mmol/L (135-145)
[2019-04-03 07:17] LABS: Anion Gap 8 mmol/L (2-11)
[2019-04-03 07:18] LABS: BUN/Creatinine Ratio 16.1 (8-20); Blood Urea Nitrogen 15 mg/dL (6-24); C Reactive Protein 5.25 mg/L (<8.01); EGFR African American 76.3 (>60); EGFR Non-African American 63.1 (>60); Glucose 82 mg/dL (70-100)
[2019-04-03 07:29] LABS: Rheumatoid Factor 96 IU/mL (<15)
[2019-04-03] MEDS: Diazepam TAB(*) 5 MG PO SCH ×3 (07:34→20:43)
[2019-04-03] MEDS: Ondansetron INJ* 2 MG/ML VIAL IV PRN ×2 (08:09→16:26)
[2019-04-03 08:49] LABS: ABS Basophils 0.1 10^3/ul (0-0.2); ABS Eosinophils 0.1 10^3/ul (0-0.6); ABS Lymphocytes 2.2 10^3/ul (1.0-4.8); ABS Monocytes 0.9 10^3/ul (0-0.8); ABS Neutrophils 5.6 10^3/ul (1.5-7.7); Eosinophil % 1.2 %; Hematocrit 38 % (35-47); Lymphocyte % 24.7 %; Mean Corpuscular HGB Conc 34 g/dL (31-36); Mean Corpuscular Hemoglobin 30 pg (27-31); Mean Corpuscular Volume 87 fL (80-97); Mean Platelet Volume 9.3 fL (7.4-10.4); Nucleated Red Blood Cells % 0.1; Platelet Count 302 10^3/uL (150-450); Red Cell Distribution Width 18 % (10-15); White Blood Count 8.8 10^3/uL (3.5-10.8)
[2019-04-03] MEDS: Escitalopram * 20 MG TABLET PO SCH ×2 (10:16→20:42)
[2019-04-03] MEDS: cloNIDine TAB* 0.1 MG PO SCH ×3 (10:17→20:42)
[2019-04-03] MEDS: Aspirin 81 mg CHEW TAB* 81 MG TAB.CHEW PO SCH (10:17)
[2019-04-03] MEDS: Metoprolol Tartrate TAB* 50 mg PO SCH ×2 (10:18→20:44)
[2019-04-03] MEDS: Carisoprodol TAB* 350 MG PO SCH ×4 (10:18→20:44)
[2019-04-03] MEDS: Pantoprazole TAB * 40 MG TAB PO SCH ×2 (10:19→20:44)
[2019-04-03 10:45] LABS: Erythrocyte Sed Rate 30 mm/Hr (0-29)
[2019-04-03] MEDS: Metoclopramide IV* 5 MG/ML 2 ML VIAL IV PRN ×2 (11:00→21:00)
[2019-04-03] MEDS: Gabapentin CAP(*) 300 MG PO SCH ×3 (11:01→20:45)
--- NOTE | 2019-04-03 11:33 | ECHO ---
*[facility]* [place] [address] Fax #: [phone] Transthoracic Echocardiogram Patient: Tracey Thorne : 1965 Study Date: 04/03/2019 Age: 53 Gender: F HR: 60 bpm Height: 64 in /162.6 cm BSA: 1.6 m^2 Weight: 124.7 lb /56.7 kg BMI: 21.5 kg/m^2 *Door Core Assembler: * Lavern Donaldson [facility] *Referring Physician: * Hermila Reina *Reading Physician: * Michael Kim MD Indications: Syncope. Abnormal EKG. History: Transient ischemic attack. Risk factors: Current tobacco use. Hypertension. Conclusions Summary: - Left ventricle: The cavity size is normal. Wall thickness is mildly increased. Systolic function is normal. The estimated ejection fraction is 60-65%. Wall motion is normal; there are no regional wall motion abnormalities. - Right ventricle: The cavity size is normal. Systolic function is normal. - Left atrium: The atrium is mildly dilated. - No more than mild valvular regurgitation noted Recommendations: Compared to prior study from 10/2018, no clinically significant changes noted. Study data: Transthoracic echocardiogram. Procedure: Transthoracic echocardiography was performed. Image quality was fair. Complete 2D, spectral Doppler, and color flow Doppler. Location: Bedside. Patient status: Inpatient. Patient room number: 418 02. Rhythm: Normal sinus rhythm. Findings Left ventricle: The cavity size is normal. Wall thickness is mildly increased. Systolic function is normal. The estimated ejection fraction is 60-65%. Wall motion is normal; there are no regional wall motion abnormalities. Left ventricular diastolic function parameters are normal. Right ventricle: The cavity size is normal. Systolic function is normal. Left atrium: The atrium is mildly dilated. Right atrium: The atrium is normal in size. Mitral valve: The leaflets are mildly thickened. There is no evidence of stenosis. There is mild regurgitation. Aortic valve: The valve is trileaflet. The leaflets are normal thickness. There is no evidence of stenosis. There is mild regurgitation. Tricuspid valve: The leaflets are normal thickness. There is no evidence of stenosis. There is trace regurgitation. Pulmonic valve: The leaflets are normal thickness. There is no evidence of stenosis. There is no significant regurgitation. Aorta: The aortic root appears normal. The aortic arch appears normal. Pericardium: There is no significant pericardial effusion. Pulmonary arteries: The main pulmonary artery is normal-sized. Systolic pressure can not be accurately estimated. Systemic veins: Inferior vena cava: The vessel is normal in size. There is (>= 50%) respiratory change in the IVC dimension. Measurements Left ventricle Value Ref Aortic valve Value Ref MARYJO, LAX 4.2 cm 3.8 - 5.2 Tianna diam, ED 1.9 cm ---- ESD, LAX 2.7 cm 2.2 - 3.5 Peak v, S 1.38 m/sec ---- FS, LAX 35 % 27 - 45 VTI, S 28.7 cm ---- PW, ED, LAX (H) 1.1 cm 0.6 - 0.9 Mean grad, S 4.0 mm Hg ---- EF 64 % 54 - 74 Peak grad, S 8.0 mm Hg ---- E', lat tianna, TDI (L) 9.7 cm/sec >=10.0 E/e', lat tianna, 8 Mitral valve Value Ref TDI Peak E 0.8 m/sec ---- E', med tianna, TDI 8.1 cm/sec >=7.0 Peak A 0.45 m/sec ---- E/e', med tianna, 10 Decel time 145 ms ---- TDI Peak grad, D 2.6 mm Hg ---- E', avg, TDI 8.9 cm/sec Peak E/A ratio 1.8 ---- E/e', avg, TDI 9 <=14 Pulmonic valve Value Ref LVOT Value Ref Peak v, S 0.86 m/sec ---- Peak vick, S 1.02 m/sec Peak grad, S 3.0 mm Hg ---- Mean grad, S 2 mm Hg Aortic root Value Ref Ventricular septum Value Ref Root diam 2.8 cm <3.8 IVS, ED (H) 1.0 cm 0.6 - 0.9 Aortic arch Value Ref Right ventricle Value Ref Arch diam 2.6 cm ---- MARYJO, LAX 2.2 cm Decending aorta Value Ref Left atrium Value Ref Trae peak vick 0.9 m/sec ---- AP dim, ES 3.80 cm 2.70 - 3.80 Inferior vena cava Value Ref ML dim, A4C 4.1 cm Diam 2.0 cm ---- SI dim, A4C 6.1 cm Vol/bsa, ES, A/L (H) 36 ml/m^2 16 - 34 Pulmonary veins Value Ref Peak v, S 0.49 m/sec ---- Right atrium Value Ref Peak v, D 0.34 m/sec ---- SI dim, ES 4.5 cm 3.4 - 5.3 Peak S/D ratio 1.4 ---- ML dim, ES, A4C 3.5 cm 2.6 - 4.4 A rev duration 137 ms ---- SI dim, ES, A4C 4.5 cm 3.4 - 5.3 SI dim/bsa, ES, 2.8 cm/m^2 1.9 - 3.1 A4C Estimated RAP 8 mm Hg Legend: (L) and (H) chacho values outside specified reference range. Prepared and electronically signed by Michael Kim MD 04/03/2019 11:32
--- NOTE | 2019-04-03 13:40 | EEG ---
ELECTROENCEPHALOGRAPHY: DATE OF STUDY: 04/03/19 REFERRING PHYSICIAN: Dr. Lewis. She is an inpatient in room 418. CLINICAL PROBLEM: Episodes of loss of consciousness. MEDICATIONS: Include: 1. Ondansetron. 2. Reglan. 3. Lovenox. 4. Protonix. 5. Lopressor. 6. Gabapentin. 7. Catapres. 8. Roxicodone. 9. Diazepam. REPORT: This 19-channel EEG is remarkable for background rhythms consisting of a well-formed alpha rhythm in the occipital derivations at about 9 cycles per second. There is abundant moderate voltage beta rhythms bifrontally and centrally. Activation procedures were not attempted. The patient intermittently blinks and grits her teeth causing some movement and muscle artifact. There was also some sweat artifact later in the tracing. The patient has an episode where her "whole body jumps" with movement artifact but no electroencephalographic abnormalities. The patient does not appear to drowse or sleep during the recording. There are no focal, lateralized, or epileptiform abnormalities. INTERPRETATION: Normal awake EEG. [id number]/[facility] #: [id number] [facility]
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
[2019-04-03] MEDS: Atorvastatin* 40 MG TAB PO SCH (16:24)
[2019-04-03] MEDS: Meclizine TAB* 12.5 MG PO PRN (16:25)
[2019-04-03] MEDS: Melatonin 3 MG TAB PO SCH (20:43)
[2019-04-04] MEDS: Enoxaparin(*) 40 MG/0.4 ML SYR SUBCUT SCH (03:39)
[2019-04-04] MEDS: Ondansetron INJ* 2 MG/ML VIAL IV PRN (03:54)
[2019-04-04] MEDS: Diazepam TAB(*) 5 MG PO SCH ×2 (06:15→12:45)
[2019-04-04] MEDS ORDERED: Docusate CAP* 100 MG PO PRN (08:09)
[2019-04-04] MEDS: Pantoprazole TAB * 40 MG TAB PO SCH ×2 (08:34→20:44)
[2019-04-04] MEDS: Carisoprodol TAB* 350 MG PO SCH ×4 (08:34→20:44)
[2019-04-04] MEDS: Aspirin 81 mg CHEW TAB* 81 MG TAB.CHEW PO SCH (08:34)
[2019-04-04] MEDS: oxyCODONE TAB* 5 MG TAB PO PRN (08:36)
[2019-04-04] MEDS: Meclizine TAB* 12.5 MG PO PRN (08:37)
[2019-04-04] MEDS: Gabapentin CAP(*) 300 MG PO SCH ×3 (08:37→20:43)
[2019-04-04] MEDS: Escitalopram * 20 MG TABLET PO SCH ×2 (08:38→20:44)
[2019-04-04] MEDS: Metoclopramide IV* 5 MG/ML 2 ML VIAL IV PRN ×2 (08:56→17:12)
[2019-04-04] MEDS: cloNIDine TAB* 0.1 MG PO SCH ×3 (09:11→19:51)
[2019-04-04] MEDS: Metoprolol Tartrate TAB* 50 mg PO SCH ×2 (09:11→20:42)
[2019-04-04 12:44] LABS: Urine Appearance Cloudy; Urine Bacteria Absent (Absent); Urine Bilirubin Negative (Negative); Urine Blood 1+ (Negative); Urine Color Straw; Urine Glucose Negative (Negative); Urine Ketones Negative (Negative); Urine Nitrite Negative (Negative); Urine Protein Negative (Negative); Urine Red Blood Cell 1+(3-5/hpf) (Absent); Urine Specific Gravity 1.005 (1.010-1.030); Urine Squamous Epithelial Cell Present (Absent); Urine Urobilinogen Negative (Negative); Urine White Blood Cell 3+(>20/hpf) (Absent)
[2019-04-04] MEDS: Acetaminophen TAB* 325 MG PO PRN ×2 (12:47→20:44)
[2019-04-04] MEDS ORDERED: Butalb/Acetamin/Caff TAB* 1 TAB PO ONE (14:49)
[2019-04-04] MEDS ORDERED: cefTRIAXone(*) 1 GM in NS 0.9% 50 ML* 50 ML IVPB SCH (16:00)
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
[2019-04-04] MEDS: Atorvastatin* 40 MG TAB PO SCH (17:37)
[2019-04-04] MEDS: Polyethylene Glycol 3350* 17 GM PACKET PO SCH (20:42)
[2019-04-04] MEDS: Melatonin 3 MG TAB PO SCH (20:44)
[2019-04-05] MEDS: Enoxaparin(*) 40 MG/0.4 ML SYR SUBCUT SCH (03:31)
[2019-04-05] MEDS: oxyCODONE TAB* 5 MG TAB PO PRN ×3 (03:37→20:22)
[2019-04-05] MEDS: Polyethylene Glycol 3350* 17 GM PACKET PO SCH ×2 (08:41→20:19)
[2019-04-05] MEDS: Metoprolol Tartrate TAB* 50 mg PO SCH ×2 (08:43→20:21)
[2019-04-05] MEDS: Gabapentin CAP(*) 300 MG PO SCH ×3 (08:43→20:22)
[2019-04-05] MEDS: Aspirin 81 mg CHEW TAB* 81 MG TAB.CHEW PO SCH (08:43)
[2019-04-05] MEDS: Pantoprazole TAB * 40 MG TAB PO SCH ×2 (08:43→20:23)
[2019-04-05] MEDS: cloNIDine TAB* 0.1 MG PO SCH ×3 (08:43→20:21)
[2019-04-05] MEDS: Carisoprodol TAB* 350 MG PO SCH ×4 (08:43→20:21)
[2019-04-05] MEDS: Metoclopramide IV* 5 MG/ML 2 ML VIAL IV PRN ×2 (08:45→14:53)
[2019-04-05] MEDS: Escitalopram * 20 MG TABLET PO SCH ×2 (09:05→20:20)
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
[2019-04-05] MEDS: Ondansetron INJ* 2 MG/ML VIAL IV PRN ×2 (11:58→20:55)
[2019-04-05] MEDS ORDERED: HYDROmorphone INJ1* 1 MG/ML SYRINGE IV SLOW PU ONE (12:17)
[2019-04-05] MEDS: Atorvastatin* 40 MG TAB PO SCH (17:22)
[2019-04-05] MEDS: Melatonin 3 MG TAB PO SCH (20:20)
[2019-04-06] MEDS: Enoxaparin(*) 40 MG/0.4 ML SYR SUBCUT SCH (02:05)
[2019-04-06] MEDS: Carisoprodol TAB* 350 MG PO SCH ×5 (06:08→20:45)
[2019-04-06] MEDS: oxyCODONE TAB* 5 MG TAB PO PRN ×3 (06:08→18:36)
[2019-04-06] MEDS: Ondansetron INJ* 2 MG/ML VIAL IV PRN ×2 (06:09→18:37)
[2019-04-06] MEDS: Acetaminophen TAB* 325 MG PO PRN (07:22)
[2019-04-06] MEDS: Polyethylene Glycol 3350* 17 GM PACKET PO SCH ×2 (07:31→20:45)
[2019-04-06] MEDS: Aspirin 81 mg CHEW TAB* 81 MG TAB.CHEW PO SCH (07:32)
[2019-04-06] MEDS: Escitalopram * 20 MG TABLET PO SCH ×2 (07:32→20:46)
[2019-04-06] MEDS: Pantoprazole TAB * 40 MG TAB PO SCH ×2 (07:32→20:46)
[2019-04-06] MEDS: Gabapentin CAP(*) 300 MG PO SCH ×3 (09:06→20:47)
[2019-04-06] MEDS: cloNIDine TAB* 0.1 MG PO SCH ×3 (09:08→20:46)
[2019-04-06] MEDS: Metoprolol Tartrate TAB* 50 mg PO SCH ×2 (09:08→20:46)
[2019-04-06] MEDS: Metoclopramide IV* 5 MG/ML 2 ML VIAL IV PRN ×2 (09:15→20:51)
[2019-04-06] MEDS ORDERED: Sodium Phosphate ADULT ENEMA* 118 ml bottle PR ONE (12:24)
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
[2019-04-06] MEDS: Atorvastatin* 40 MG TAB PO SCH (18:36)
[2019-04-06] MEDS: Melatonin 3 MG TAB PO SCH (20:45)
[2019-04-07] MEDS: Enoxaparin(*) 40 MG/0.4 ML SYR SUBCUT SCH (03:07)
[2019-04-07] MEDS: Metoclopramide IV* 5 MG/ML 2 ML VIAL IV PRN (09:18)
[2019-04-07] MEDS: oxyCODONE TAB* 5 MG TAB PO PRN ×3 (09:18→17:24)
[2019-04-07] MEDS: Polyethylene Glycol 3350* 17 GM PACKET PO SCH ×2 (10:02→20:45)
[2019-04-07] MEDS: Aspirin 81 mg CHEW TAB* 81 MG TAB.CHEW PO SCH (10:02)
[2019-04-07] MEDS: Escitalopram * 20 MG TABLET PO SCH ×2 (10:02→20:45)
[2019-04-07] MEDS: Gabapentin CAP(*) 300 MG PO SCH ×3 (10:02→20:45)
[2019-04-07] MEDS: Metoprolol Tartrate TAB* 50 mg PO SCH ×2 (10:03→20:46)
[2019-04-07] MEDS: Pantoprazole TAB * 40 MG TAB PO SCH ×2 (10:03→20:45)
[2019-04-07] MEDS: cloNIDine TAB* 0.1 MG PO SCH ×3 (10:03→20:46)
[2019-04-07] MEDS: Carisoprodol TAB* 350 MG PO SCH ×4 (10:07→20:46)
[2019-04-07] MEDS: Ondansetron INJ* 2 MG/ML VIAL IV PRN (11:57)
[2019-04-07] MEDS: Ondansetron TAB* 4 MG PO PRN ×2 (13:18→19:43)
[2019-04-07] MEDS: Meclizine TAB* 12.5 MG PO SCH ×2 (13:19→20:46)
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
[2019-04-07] MEDS: Acetaminophen TAB* 325 MG PO PRN (16:19)
[2019-04-07] MEDS: Atorvastatin* 40 MG TAB PO SCH (16:20)
[2019-04-07] MEDS: Melatonin 3 MG TAB PO SCH (20:46)
[2019-04-08] MEDS: Enoxaparin(*) 40 MG/0.4 ML SYR SUBCUT SCH (03:31)
[2019-04-08] MEDS: Meclizine TAB* 12.5 MG PO SCH ×2 (05:46→13:04)
[2019-04-08] MEDS: Aspirin 81 mg CHEW TAB* 81 MG TAB.CHEW PO SCH (08:19)
[2019-04-08] MEDS: Ondansetron TAB* 4 MG PO PRN (08:19)
[2019-04-08] MEDS: Pantoprazole TAB * 40 MG TAB PO SCH (08:20)
[2019-04-08] MEDS: Carisoprodol TAB* 350 MG PO SCH ×2 (08:20→13:04)
[2019-04-08] MEDS: Escitalopram * 20 MG TABLET PO SCH (08:20)
[2019-04-08] MEDS: cloNIDine TAB* 0.1 MG PO SCH ×2 (08:20→13:04)
[2019-04-08] MEDS: Metoprolol Tartrate TAB* 50 mg PO SCH (08:21)
[2019-04-08] MEDS: oxyCODONE TAB* 5 MG TAB PO PRN ×2 (08:21→13:03)
[2019-04-08] MEDS: Gabapentin CAP(*) 300 MG PO SCH ×2 (08:22→13:04)
[2019-04-08] MEDS: Polyethylene Glycol 3350* 17 GM PACKET PO SCH (08:24)
[2019-04-08 11:20] VITALS: BP 115/68
[2019-04-08] MEDS ORDERED: Metoclopramide TAB* 10 MG PO ONE (12:41)
[2019-04-08] MEDS ORDERED: Metoprolol Tartrate TAB* 25 MG PO SCH (21:00)
--- NOTE | 2019-04-10 13:33 | DS ---
AMENDED REPORT NOW INCLUDES DESIGNATED COSIGNER CC: Dr. Liu Berry; Nandini Mitchell NP * DISCHARGE SUMMARY: DATE OF ADMISSION: 04/02/19 DATE OF DISCHARGE: 04/08/19 PRIMARY CARE PROVIDER: Dr. Liu Berry. NEUROLOGIST: Nandini Mitchell NP MY ATTENDING WHILE IN THE HOSPITAL: Dr. Michaela Curran.* (DICTATED BY DYLAN COATES) PRIMARY DISCHARGE DIAGNOSES: 1. Syncope. 2. Orthostatic dizziness. 3. Falls. 4. Postconcussive syndrome. 5. Elevated rheumatoid factor. SECONDARY DISCHARGE DIAGNOSES: 1. Chronic pain. 2. Postconcussive syndrome. 3. History of traumatic brain injury. 4. Possible transient ischemic attack x4. 5. Hypertension. 6. History of hepatitis C. 7. History of cervical cancer. 8. History of peptic ulcer disease due to Helicobacter pylori. 9. Bipolar disorder. 10. History of medication-induced dystonia. STUDIES DONE WHILE IN THE HOSPITAL: Brain CT from 04/01/19 read as no acute intracranial abnormality. Cervical spine CT from 04/01/19 read as status post spinal fusion. No acute osseous injury to the cervical spine. Brain MRI from 04/01/19 read as no acute intracranial pathology. Transthoracic echocardiogram from 04/02/19 read as left ventricular chamber size normal, wall thickness mildly increased, estimated ejection fraction 60% to 65%. No regional wall motion abnormalities. Left atrium is mildly dilated. No significant changes from 2018. Repeat brain CT from 04/03/19 read as no evidence for acute intracranial abnormality, possible chronic small vessel ischemic changes. Electroencephalogram from 04/03/19 read as normal awake EEG. MEDICATIONS AT DISCHARGE: 1. Gabapentin 600 mg p.o. t.i.d. 2. Clonidine 0.1 mg t.i.d. 3. Clonidine 0.1 mg nightly. 4. Omeprazole 40 mg p.o. b.i.d. 5. Lexapro 20 mg p.o. b.i.d. 6. Lipitor 40 mg p.o. nightly. 7. Hydroxyzine 25 mg p.o. b.i.d. as needed. 8. Albuterol inhaler 1 puff inhalation q.6 hours as needed. 9. Melatonin 6 mg p.o. at bedtime. 10. Soma 350 mg p.o. 4 times daily. 11. Tylenol 650 mg p.o. q.4 hours as needed. 12. Docusate 100 mg p.o. daily. 13. Meclizine 25 mg p.o. q.8 hours as needed for dizziness. 14. Metoprolol tartrate 25 mg p.o. b.i.d. 15. Zofran 4 mg p.o. q.6 hours as needed. 16. Polyethylene glycol 17 g p.o. b.i.d. as needed. 17. Metoclopramide 5 mg p.o. daily as needed x15 tabs. New medications at discharge: 1. Tylenol. 2. Docusate. 3. Meclizine. 4. Metoprolol. 5. Zofran. 6. Reglan. Medication discontinued at discharge: Metoprolol tartrate 50 mg p.o. b.i.d. HOSPITAL COURSE: This is a brief summary of the patient's presentation. For more details, please see the history and physical from Lisbeth Rodriguez NP, on 09/20. In brief, the patient is a 53-year-old female with past medical history significant for the above who presented to the emergency department after having vertigo attacks for approximately 1 month before her admission, which she initially describes as her typical vertigo attacks, but these varied throughout her hospitalization. She had had a previous fall where she hit her face and was diagnosed by her neurologist with a postconcussive syndrome. The patient was witnessed to have a fall from standing on her back deck with loss of consciousness. The patient had some abdominal pain, but no other significant findings. The patient had a profoundly negative workup as above. The patient was seen in consultation by Dr. Liu Lewis. The patient was found to have a functional exam with pseudo-pronator drift and some inconsistent weakness of the right side. The patient continued to complain of vertigo and nausea. The patient had an in- hospital fall when attempting to get up by herself. The patient was seen by Physical Therapy and recommended at that point to have subacute rehab placement; however, the patient with inpatient physical therapy improved greatly. The patient's nausea improved. The patient's dizziness improved. The patient had significant cardiac workup as above for short IL interval. The patient during this workup had an elevated rheumatoid factor, but negative CCP and negative MARIO ALBERTO. CRP of 5.25 and ESR only slightly elevated at 30. The patient had no other musculoskeletal complaints while in the hospital. The patient has no joint swelling or known history of autoimmune disease. The patient had negative Lyme disease antibody and negative urine cultures. On 04/08/19, the patient was feeling much better and was feeling ready to go home. The patient was able to walk up 16 stairs with physical therapy and able to walk over 30 feet with this author with a walker. The patient was stable and amenable for discharge on 04/08/19. PHYSICAL EXAM ON THE DAY OF DISCHARGE: General: The patient is a 53-year-old female who appears stated age and sitting comfortably in bed, in no acute distress. Vital Signs: At the time of evaluation, temperature 97.6, pulse rate 57, respiratory rate 16, oxygen saturation 100% on room air, blood pressure 115/ 68. HEENT: Head normocephalic, atraumatic. Sclerae anicteric. No conjunctival injection. Nasal mucosa moist. Oral mucosa moist. No pharyngeal erythema, discharge, or exudate. Neck: Supple, nontender. No lymphadenopathy. No carotid bruits auscultated. No JVD. Cardiac: Regular rate and rhythm. No clicks, murmurs, gallops, or rubs. Pulses are 2+ in the bilateral dorsalis pedis, posterior tibialis, and radial areas. Respiratory: Clear to auscultation bilaterally. No wheezes, rales, or rhonchi. Good air exchange bilaterally. Abdomen: Soft, nontender, nondistended. Bowel sounds present and normoactive in all 4 quadrants. No hepatosplenomegaly. No abdominal bruits auscultated. No hepatojugular reflux. Genitourinary: No suprapubic or CVA tenderness. Skin: Clean, dry, and intact. No rash. Neuro: The patient has a bizarre array of inconsistent neurologic deficits showing a pattern of, during strength testing, having full strength in both legs and then the appearance of voluntary withdrawal of the right side in both the upper and lower extremities. With the patient's gait, the patient has a consistent double buckling of her right leg while walking in a stereotyped pattern. While shaking the patient's hand upon leaving the room, the patient had significantly greater strength than during neurological strength testing. Psychiatric: Very pleasant and cooperative. DISCHARGE PLAN: The patient will be discharged to home. The patient will be accompanied by her friend initially, who will monitor her for safety once she is initially at home due to her recent fall. The patient has had significant issues with nausea while in the hospital and has been prescribed Zofran and a short course of Reglan. Given the patient's history of dystonia, the Reglan should not be given for a long-term basis. The patient was previously diagnosed with a postconcussive syndrome from her neurologist. It is likely that her symptoms will diminish as time goes on. The patient had consistently low blood pressures while in the hospital without orthostatic hypotension; however, given the patient's syncope prior to arrival, the patient's metoprolol has been discontinued. Given the patient's unreliability for taking medications per her own report, the combination of clonidine and metoprolol is likely not ideal for her given its propensity for severe rebound hypertension. The patient should discuss with primary care provider changing her medications to a different antihypertensive regimen. If the patient's clonidine is primarily for PTSD or flashbacks, alternative medications may be more suited. The patient should follow up with her neurologist for continued care and should follow up with primary care provider in 1 week for general medical management. The patient should engage in activity as tolerated and have a regular unrestricted diet. The patient should discuss with her primary care provider referral to a facility rehab director for her isolated rheumatoid factor of unclear clinical significance. TIME SPENT: Approximately 60 minutes was spent on the discharge of this patient , 30 of which was spent [id number] obtaining history and physical and discussing treatment plan. DYLAN COATES [id number]/[facility] #: [id number] MINDY
== END 2019-04-08 14:44 | disposition home health service (06) | DRG 312 ==
LOC: ED 16:02 → MED 23:52 → OBSVTOIN 04-03 15:17
PROVIDERS: ADMIT Nurse Practitioner Family; ATTEND Internal Medicine
DX: R55 Syncope and collapse (principal); F07.81 Postconcussional syndrome; G89.29 Other chronic pain; Z87.820 Personal history of traumatic brain injury; I10 Essential (primary) hypertension; F31.9 Bipolar disorder, unspecified; K25.9 Gastric ulcer, unspecified as acute or chronic, without hemorrhage or perforation; R11.0 Nausea; M54.9 Dorsalgia, unspecified; R51 Headache; R10.9 Unspecified abdominal pain; M54.2 Cervicalgia; F17.210 Nicotine dependence, cigarettes, uncomplicated; L50.0 Allergic urticaria; T40.2X5A Adverse effect of other opioids, initial encounter; W06.XXXA Fall from bed, initial encounter; Y92.230 Patient room in hospital as the place of occurrence of the external cause; W18.30XA Fall on same level, unspecified, initial encounter; Z91.81 History of falling; Y92.096 Garden or yard of other non-institutional residence as the place of occurrence of the external cause; Z86.73 Personal history of transient ischemic attack (TIA), and cerebral infarction without residual deficits; Z85.41 Personal history of malignant neoplasm of cervix uteri; Z79.51 Long term (current) use of inhaled steroids; Z79.899 Other long term (current) drug therapy; Z88.5 Allergy status to narcotic agent; Z88.0 Allergy status to penicillin; Z88.8 Allergy status to other drugs, medicaments and biological substances; Z80.3 Family history of malignant neoplasm of breast; Z82.3 Family history of stroke
CPT/HCPCS: 36415; 70450; 70551; 72125; 80048; 80053; 81003; 81015; 82607; 83605; 83735; 84443; 84484; 85025; 85652; 86038; 86140; 86200; 86431; 86618; 87086; 93005; 93306; 95819; 99285; A9270-GY; G0378; G8978-GP-CK; G8979-GP-CH; J0696; J1170; J1200; J1650; J2270; J2405; J2765; J3360

== ENCOUNTER 2019-04-27 12:45 | Inpatient (IN) | payer MEDICARE, OTHER ==
--- NOTE | 2019-04-27 13:03 | ED ---
Psychiatric Complaint - HPI Summary HPI Summary: This pt is a 54 y/o female presenting to [facility] via police for suicidal thoughts since 04/23/19. Pt reports she has hx of depression and anxiety and does not think she is on the right medications. She reports she has "bad" anxiety and panic attacks as well. Pt states she is afraid of what she might do due to her suicidal thoughts when she is in depressive moods. Denies SI plan or HI thoughts /plan. She notes she has sleep disturbance and either sleeps too much or not enough. Pt has also been taking Zofran and Reglan because she is unable to keep anything down. Pt spoke to her director case and was advised to come to the ED. She admits to smoking 4 cigarettes a day and smoking marijuana, but denies alcohol use. - History Of Current Complaint Chief Complaint: EDSuicidal Time Seen by Provider: 04/27/19 12:54 Hx Obtained From: Patient Onset/Duration: Lasting Days, Still Present Timing: Days Severity Currently: Moderate Character: Depressed Aggravating Factor(s): Nothing Alleviating Factor(s): Nothing Associated Signs And Symptoms: Positive: Sleep Disturbance, Appetite Change Related History: Positive For: Prior Psychiatric Issues Has Suicidal: Reports: Thoughts. Denies: With A Plan Has Homicidal: Denies: Thoughts, With A Plan - Allergies/Home Medications Allergies/Adverse Reactions: Allergies Allergy/AdvReac Type Severity Reaction Status Date / Time bee venom protein (honey bee) Allergy Severe Hives Verified 04/01/19 16:08 Penicillins Allergy Severe Hives Verified 04/01/19 16:08 ketamine Allergy Agitation Verified 04/27/19 12:51 morphine Allergy Hives Verified 04/01/19 18:18 ketorolac [From Toradol] AdvReac Intermediate Vomiting Verified 04/05/19 12:21 Home Medications: Home Medications Aspirin EC TAB* [Ecotrin EC Low Dose 81 MG*] 81 mg PO DAILY 04/27/19 [History Confirmed 04/27/19] Gabapentin CAP(*) [Neurontin 400 mg CAP(*)] 800 mg PO BID 04/27/19 [History Confirmed 04/27/19] Meclizine TAB* [Antivert 12.5 TAB*] 25 mg PO Q8HR 04/27/19 [History Confirmed ] Metoclopramide TAB* [Reglan TAB*] 5 mg PO DAILY PRN 04/27/19 [History Confirmed 04/27/19] Metoprolol Tartrate TAB* [Lopressor TAB*] 50 mg PO BID 04/27/19 [History Confirmed 04/27/19] cloNIDine TAB* [Catapres 0.1 MG TAB*] 0.1 mg PO 0700,1200 04/27/19 [History Confirmed 04/27/19] cloNIDine TAB* [Catapres 0.1 MG TAB*] 0.2 mg PO BEDTIME 04/27/19 [History Confirmed 04/27/19] hydrOXYzine HCL TAB* [Atarax 25 MG TAB*] 25 mg PO BID PRN 04/27/19 [History Confirmed 04/27/19] PMH/Surg Hx/FS Hx/Imm Hx Endocrine/Hematology History: Denies: Hx Diabetes Cardiovascular History: Reports: Hx Hypertension Denies: Hx Pacemaker/ICD GI History: Reports: Hx Ulcer - gastric ulcer and H pylori positive , Other GI Disorders - Hep C Musculoskeletal History: Reports: Hx Back Problems, Other Musculoskeletal History Sensory History: Denies: Hx Contacts or Glasses, Hx Hearing Aid Opthamlomology History: Denies: Hx Contacts or Glasses Neurological History: Reports: Hx Transient Ischemic Attacks (TIA), Other Neuro Impairments/Disorders - hx bilateral foot drop Psychiatric History: Reports: Hx Anxiety, Hx Depression, Other Psychiatric Issues/Disorders - on Abilify and Clonidine, seroquel, lexapro Denies: Hx Panic Disorder - Surgical History Surgery Procedure, Year, and Place: 9 spinal surgeries Infectious Disease History: No Infectious Disease History: Reports: Hx Hepatitis - C, Hx of Known/Suspected MRSA Denies: Traveled Outside the [place] in Last 30 Days - Family History Known Family History: Positive: Other - brother and father had strokes - Social History Alcohol Use: None Hx Substance Use: Yes Substance Use Type: Reports: Marijuana Hx Tobacco Use: Yes Smoking Status (MU): Light Every Day Tobacco Smoker Type: Cigarettes Review of Systems Constitutional: Other - POSITIVE: sleep disturbance, decreased PO intake Negative: Fever, Chills Psychological: Other - POSITIVE: SI Negative: Other - NEGATIVE: HI All Other Systems Reviewed And Are Negative: Yes Physical Exam - Summary Physical Exam Summary: VITAL SIGNS: Reviewed. GENERAL: Patient is a well-developed and nourished female who is lying comfortable in the stretcher. Patient is not in any acute respiratory distress. HEAD AND FACE: No signs of trauma. No ecchymosis, hematomas or skull depressions. No sinus tenderness. EYES: PERRLA, EOMI x 2, No injected conjunctiva, no nystagmus. EARS: Hearing grossly intact. Ear canals and tympanic membranes are within normal limits. MOUTH: Oropharynx within normal limits. NECK: Supple, trachea is midline, no adenopathy, no JVD, no carotid bruit, no c- spine tenderness, neck with full ROM. CHEST: Symmetric, no tenderness at palpation LUNGS: Clear to auscultation bilaterally. No wheezing or crackles. CVS: Regular rate and rhythm, S1 and S2 present, no murmurs or gallops appreciated. ABDOMEN: Soft, non-tender. No signs of distention. No rebound no guarding, and no masses palpated. Bowel sounds are normal. EXTREMITIES: FROM in all major joints, no edema, no cyanosis or clubbing. NEURO: Alert and oriented x 3. No acute neurological deficits. Speech is normal and follows commands. SKIN: Dry and warm Triage Information Reviewed: Yes Vital Signs On Initial Exam: Initial Vitals Temp Pulse Resp BP Pulse Ox 98.4 F 55 16 161/97 96 04/27/19 12:46 04/27/19 12:46 04/27/19 12:46 04/27/19 12:46 04/27/19 12:46 Vital Signs Reviewed: Yes Diagnostics - Vital Signs Vital Signs Temp Pulse Resp BP Pulse Ox 04/27/19 12:46 98.4 F 55 16 161/97 96 - Laboratory Result Diagrams: 04/27/19 13:06 04/27/19 13:06 Lab Statement: Any lab studies that have been ordered have been reviewed, and results considered in the medical decision making process. Re-Evaluation - Re-Evaluation First Eval Re-Evaluation Time: 13:00 Comment: Pt is medically cleared. Course/Dx - Course Assessment/Plan: This pt is a 54 y/o female presenting to [facility] via police for suicidal thoughts since 04/23/19. Pt reports she has hx of depression and anxiety and does not think she is on the right medications. She reports she has "bad" anxiety and panic attacks as well. Pt states she is afraid of what she might do due to her suicidal thoughts when she is in depressive moods. Denies SI plan or HI thoughts/plan. She notes she has sleep disturbance and either sleeps too much or not enough. Pt has also been taking Zofran and Reglan because she is unable to keep anything down. Pt spoke to her director case and was advised to come to the ED. She admits to smoking 4 cigarettes a day and smoking marijuana, but denies alcohol use. Blood work w/o a significant abnormality. She is medically cleared. She is awaiting a MHE. Patient is hemodynamically stable and A+O x 3. Patient had a mental health evaluation and her case was reviewed by Dr. Méndez, psychiatrist. 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 Méndez on a voluntary status with dx bipolar disorder. - Differential Dx/Clinical Impression Differential Diagnosis/HQI/PQRI: Positive: Depression, Suicidal Ideation Provider Diagnosis: Bipolar disorder Discharge ED - Sign-Out/Discharge Documenting (check all that apply): Patient Departure - Admit to [facility] Patient Received Moderate/Deep Sedation with Procedure: No - Discharge Plan Condition: Stable Disposition: PSYCHIATRIC FACILITY-[facility] - Billing Disposition and Condition Condition: STABLE Disposition: Psychiatric Facility [facility] - Attestation Statements Document Initiated by Scribe: Yes Documenting Scribe: Pooja Vazquez Provider For Whom Ivaibe is Documenting (Include Credential): Adam Romero MD Scribe Attestation: Pooja Greer, scribed for Adam Romero MD on 04/28/19 at 0750. Scribe Documentation Reviewed: Yes Provider Attestation: The documentation as recorded by the Pooja low accurately reflects the service I personally performed and the decisions made by nd, Adam Romero MD Status of Scribe Document: Viewed
[2019-04-27 13:42] LABS: ABS Basophils 0.1 10^3/ul (0-0.2); ABS Lymphocytes 1.7 10^3/ul (1.0-4.8); ABS Monocytes 0.5 10^3/ul (0-0.8); ABS Neutrophils 4.5 10^3/ul (1.5-7.7); Eosinophil % 0.6 %; Hematocrit 40 % (35-47); Hemoglobin 13.5 g/dL (12.0-16.0); Mean Corpuscular HGB Conc 34 g/dL (31-36); Mean Corpuscular Hemoglobin 29 pg (27-31); Mean Corpuscular Volume 87 fL (80-97); Mean Platelet Volume 8.4 fL (7.4-10.4); Nucleated Red Blood Cells % 0.1; Platelet Count 331 10^3/uL (150-450); Red Blood Count 4.59 10^6 /uL (3.70-4.87); Red Cell Distribution Width 16 % (10-15); White Blood Count 6.9 10^3/uL (3.5-10.8)
[2019-04-27 13:52] LABS: ALT 24 U/L (7-52); Albumin 4.3 g/dL (3.2-5.2); Albumin/Globulin Ratio 1.3 (1-3); Alkaline Phosphatase 93 U/L (34-104); BUN/Creatinine Ratio 20.5 (8-20); Blood Urea Nitrogen 17 mg/dL (6-24); CO2 Carbon Dioxide 25 mmol/L (22-32); Calcium 9.6 mg/dL (8.6-10.3); Chloride 103 mmol/L (101-111); EGFR African American 86.7 (>60); EGFR Non-African American 71.6 (>60); Globulin 3.2 g/dL (2-4); Glucose 87 mg/dL (70-100); Sodium 137 mmol/L (135-145); Total Protein 7.5 g/dL (6.4-8.9)
[2019-04-27 14:02] LABS: Acetaminophen < 15 mcg/mL; Alcohol < 10 mg/dL (<10); Salicylate < 2.50 mg/dL (<30)
[2019-04-27 14:15] LABS: TSH (Thyroid Stimulating Horm) 0.52 mcIU/mL (0.34-5.60)
[2019-04-27 15:16] LABS: Anion Gap 9 mmol/L (2-11); Potassium 5.1 mmol/L (3.5-5.0)
[2019-04-27 15:22] LABS: AST 29 U/L (13-39)
[2019-04-27 18:14] LABS: Urine Appearance Clear; Urine Bacteria Absent (Absent); Urine Bilirubin Negative (Negative); Urine Blood Negative (Negative); Urine Color Yellow; Urine Glucose Negative (Negative); Urine Ketones Negative (Negative); Urine Nitrite Negative (Negative); Urine Protein Negative (Negative); Urine Red Blood Cell Trace(0-2/hpf) (Absent); Urine Specific Gravity 1.018 (1.010-1.030); Urine Squamous Epithelial Cell Present (Absent); Urine Urobilinogen Positive (Negative); Urine White Blood Cell 1+(6-10/hpf) (Absent)
[2019-04-27 18:21] LABS: Urine Benzodiazepine Screen None Detected (None Detect); Urine Opiates Screen None Detected (None Detect)
[2019-04-27] MEDS ORDERED: hydrOXYzine HCL TAB* 50 MG ONE (20:54)
[2019-04-27] MEDS ORDERED: Al Hydrox/Mg Hydrox/Simet LIQ* 30 ML UDC PO PRN (21:18)
[2019-04-27] MEDS ORDERED: Nicotine* 2MG (FRUIT FLAVOR) GUM PO PRN (21:18)
[2019-04-27] MEDS ORDERED: Acetaminophen TAB* 325 MG PO PRN (21:18)
[2019-04-27] MEDS ORDERED: Metoclopramide TAB* 10 MG PO PRN (21:21)
[2019-04-27] MEDS ORDERED: Albuterol HFA INHALER* 8 gm MDI INH PRN (21:24)
[2019-04-27] MEDS ORDERED: Docusate CAP* 100 MG PO PRN (21:35)
[2019-04-27] MEDS: cloNIDine TAB* 0.1 MG PO SCH (22:04)
[2019-04-27] MEDS: Atorvastatin* 40 MG TAB PO SCH (22:04)
[2019-04-27] MEDS: Gabapentin CAP(*) 400 MG PO SCH (22:05)
[2019-04-27] MEDS: Meclizine TAB* 12.5 MG PO SCH (22:06)
[2019-04-27] MEDS: Melatonin 3 MG TAB PO SCH (22:07)
[2019-04-27] MEDS: Metoprolol Tartrate TAB* 50 mg PO SCH (23:42)
[2019-04-28 08:03] LABS: HDL Cholesterol 51.9 mg/dL
[2019-04-28] MEDS: Vitamin THERAPEUTIC TAB PO SCH (08:20)
[2019-04-28] MEDS: Gabapentin CAP(*) 400 MG PO SCH ×2 (08:20→21:11)
[2019-04-28] MEDS: Aspirin EC TAB* 81 MG TAB.EC PO SCH (08:20)
[2019-04-28] MEDS: Escitalopram * 20 MG TABLET PO SCH (08:20)
[2019-04-28] MEDS: Meclizine TAB* 12.5 MG PO SCH ×2 (08:20→15:27)
[2019-04-28] MEDS: Metoprolol Tartrate TAB* 50 mg PO SCH ×2 (08:21→21:11)
[2019-04-28] MEDS: cloNIDine TAB* 0.1 MG PO SCH ×3 (08:21→21:12)
[2019-04-28] MEDS: Nicotine PATCH 21 MG/24 HR* PATCH TRANSDERM SCH (08:21)
[2019-04-28] MEDS: LORazepam TAB(*) 1 MG PO PRN (13:23)
[2019-04-28] MEDS: hydrOXYzine HCL TAB* 50 MG PO PRN (15:31)
[2019-04-28] MEDS: Carisoprodol TAB* 350 MG PO PRN (15:33)
[2019-04-28] MEDS: Atorvastatin* 40 MG TAB PO SCH (17:07)
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
[2019-04-28] MEDS: Nicotine Patch Removal NOTE PATCH OFF SCH (21:08)
[2019-04-28] MEDS: Divalproex DR TAB(*) 500 MG PO SCH (21:11)
[2019-04-28] MEDS: Melatonin 3 MG TAB PO SCH (21:12)
[2019-04-29] MEDS: Gabapentin CAP(*) 400 MG PO SCH ×2 (09:21→22:02)
[2019-04-29] MEDS: LORazepam TAB(*) 1 MG PO PRN ×3 (09:21→22:21)
[2019-04-29] MEDS: Divalproex DR TAB(*) 500 MG PO SCH ×2 (09:21→22:04)
[2019-04-29] MEDS: Meclizine TAB* 12.5 MG PO SCH ×4 (09:21→22:21)
[2019-04-29] MEDS: Escitalopram * 20 MG TABLET PO SCH (09:22)
[2019-04-29] MEDS: Vitamin THERAPEUTIC TAB PO SCH (09:22)
[2019-04-29] MEDS: Nicotine PATCH 21 MG/24 HR* PATCH TRANSDERM SCH (09:23)
[2019-04-29] MEDS: Aspirin EC TAB* 81 MG TAB.EC PO SCH (10:08)
[2019-04-29] MEDS ORDERED: Phenazopyridine TAB* 100 MG PO PRN (11:00)
[2019-04-29] MEDS: cloNIDine TAB* 0.1 MG PO SCH ×3 (11:25→22:04)
[2019-04-29] MEDS: Metoprolol Tartrate TAB* 50 mg PO SCH ×2 (11:25→22:04)
--- NOTE | 2019-04-29 11:32 | PN ---
BSU: Group Therapy Note - Service Type Service Type: 02711 Group Psychotherapy - CBT Group Note: Tracey was attentive and participatory in programming, and was especially empathic with a peer who was in distress. She describes historical difficulties with manic experiences, describing how she would spend money in an indiscriminate fashion at times. She engaged in productive conversation about her experiences with different kinds of medications, particularly mood stabilizers. She presents with good affect that is euthymic.
[2019-04-29] MEDS ORDERED: Metoclopramide LIQ* 10 MG/10 ML ORAL.SOLN PO PRN (15:37)
[2019-04-29] MEDS: Atorvastatin* 40 MG TAB PO SCH (16:45)
--- NOTE | 2019-04-29 20:08 | PN ---
Subjective - Subjective Date of Service: 04/29/19 Service Type: 95213 Hosp care 15 min low complexity Subjective: Tracey reports feeling ill. She is nauseated and vomits multiple times per day. Suicidal thoughts are fleeting, but repetitive. She struggles to participate at times because of her feeling so sick. We will continue with her current medications and call a consult from a hospitalist in the morning. Objective - General Observations Appearance: Disheveled Appears Stated Age: Yes Stature: Thin Posture: WNL Eye Contact: Average Behavior/Activity: Slowed - Interaction Observations Attitude Towards Examiner: Cooperative, Anxious, Defensive Stated Mood: Dysphoric, Anxious Affect: Restricted Speech Pattern/Tone: Clear Thought Process: Coherent Perception: Depersonalization Thought Content: Preoccupation/Ruminations, Depressive Thought Process: Lethality: Passive Wish Hallucination Type: Auditory, Visual Delusion Type: Denies - Cognitive Function Orientation: A&O x 4 Level of Consciousness: Awake, Alert, Appropriate Cognition: WNL Estimated Intelligence: Normal Insight: WNL Judgment Within Normal Limits: No Ability to Make Reasonable Decisions: Moderately Impaired - Medication Compliance Cooperative with Inpatient Medication Regimen: Yes - Group Participation Participates in Group Activities: Partial Assessment - Assessment Merits Inpatient Hospitalization: For Immediate Safety Clinical Impression: Tracey is a 54-year-old woman with a strong history of trauma who is having suicidal thoughts, hallucinations/illusions of voices and animals, and is also physically ill and having difficulty in the outpatient setting with financial stressors which make an impact on her mental health. Plan - Plan Treatment Plan: Name: TRACEY LEWIS Birthdate: 1965 [id number] Enter hospitalist consult in the morning. Continue medications. Continued Medication Management: Different Medication Medications: Current Medications Al Hydrox/Mg Hydrox/Simethicone (Maalox Plus*) 30 ml PO Q4H PRN PRN Reason: INDIGESTION Albuterol (Ventolin Hfa Inhaler*) 2 puff INH Q6H PRN PRN Reason: SHORTNESS OF BREATH Aspirin (Aspirin Ec Tab*) 81 mg PO DAILY [facility] Last Admin: 04/29/19 10:08 Dose: 81 mg Atorvastatin Calcium (Lipitor*) 40 mg PO 1700 [facility] Last Admin: 04/29/19 16:45 Dose: 40 mg Carisoprodol (Soma Tab*) 350 mg PO BID PRN PRN Reason: PAIN MODERATE Last Admin: 04/28/19 15:33 Dose: 350 mg Clonidine HCl (Catapres Tab*) 0.2 mg PO BEDTIME [facility] Last Admin: 04/28/19 21:12 Dose: 0.2 mg Clonidine HCl (Catapres Tab*) 0.1 mg PO 0700,1200 [facility] Last Admin: 04/29/19 12:16 Dose: Not Given Divalproex Sodium (Depakote Dr Tab(*)) 500 mg PO BID [facility] Last Admin: 04/29/19 09:21 Dose: 500 mg Docusate Sodium (Colace Cap*) 100 mg PO DAILY PRN PRN Reason: CONSTIPATION Escitalopram Oxalate (Lexapro *) 20 mg PO DAILY [facility] Last Admin: 04/29/19 09:22 Dose: 20 mg Gabapentin (Neurontin Cap(*)) 800 mg PO BID [facility] Last Admin: 04/29/19 09:21 Dose: 800 mg Hydroxyzine HCl (Atarax Tab*) 50 mg PO Q6H PRN PRN Reason: .ANXIETY Last Admin: 04/28/19 15:31 Dose: 50 mg Lorazepam (Ativan Tab(*)) 1 mg PO Q4H PRN PRN Reason: ANXIETY Last Admin: 04/29/19 16:42 Dose: 1 mg Meclizine HCl (Antivert Tab*) 25 mg PO Q8HR [facility] Last Admin: 04/29/19 16:48 Dose: Not Given Melatonin (Melatonin) 9 mg PO BEDTIME [facility] Last Admin: 04/28/19 21:12 Dose: 9 mg Metoclopramide HCl (Reglan Liq*) 10 mg PO Q6H PRN PRN Reason: NAUSEA Last Admin: 04/29/19 16:41 Dose: 10 mg Metoprolol Tartrate (Lopressor Tab*) 50 mg PO BID [facility] Last Admin: 04/29/19 11:25 Dose: Not Given Multivitamins (Theragran Tab*) 1 tab PO DAILY [facility] Last Admin: 04/29/19 09:22 Dose: 1 tab Nicotine (Nicotine Patch 21 Mg/24 Hr*) 1 patch TRANSDERM DAILY [facility] Last Admin: 04/29/19 09:23 Dose: Not Given Nicotine Polacrilex (Nicotine Gum*) 2 mg PO Q2H PRN PRN Reason: CRAVINGS Pharmacy Profile Note (Nicotine Patch Removal Note*) 1 note PATCH OFF 2099 [facility] Last Admin: 04/28/19 21:08 Dose: Not Given Phenazopyridine HCl (Pyridium Tab*) 200 mg PO TID PRN PRN Reason: urinary pain Trimethoprim/Sulfamethoxazole (Bactrim Ds 800/160 Tab*) 1 tab PO BID [facility] Stop: 05/06/19 09:01
[2019-04-29] MEDS: Nicotine Patch Removal NOTE PATCH OFF SCH (21:35)
[2019-04-29] MEDS: Melatonin 3 MG TAB PO SCH (22:03)
[2019-04-29] MEDS: Sulfamethox/Trimethoprim DS 800/160* TAB PO SCH (22:04)
[2019-04-29] MEDS: Carisoprodol TAB* 350 MG PO PRN (22:23)
[2019-04-30] MEDS: Divalproex DR TAB(*) 500 MG PO SCH ×2 (08:29→20:49)
[2019-04-30] MEDS: Aspirin EC TAB* 81 MG TAB.EC PO SCH (08:30)
[2019-04-30] MEDS: Escitalopram * 20 MG TABLET PO SCH (08:33)
[2019-04-30] MEDS: Meclizine TAB* 12.5 MG PO SCH ×3 (08:33→20:48)
[2019-04-30] MEDS: Vitamin THERAPEUTIC TAB PO SCH (08:34)
[2019-04-30] MEDS: Sulfamethox/Trimethoprim DS 800/160* TAB PO SCH ×2 (08:35→20:51)
[2019-04-30] MEDS: Metoprolol Tartrate TAB* 50 mg PO SCH ×2 (10:01→20:49)
[2019-04-30] MEDS: cloNIDine TAB* 0.1 MG PO SCH ×3 (10:01→20:51)
[2019-04-30] MEDS: Gabapentin CAP(*) 400 MG PO SCH ×2 (10:02→20:50)
[2019-04-30] MEDS: LORazepam TAB(*) 1 MG PO PRN ×2 (10:06→20:57)
[2019-04-30] MEDS: Nicotine PATCH 21 MG/24 HR* PATCH TRANSDERM SCH (10:12)
[2019-04-30] MEDS ORDERED: Ondansetron TAB* 4 MG PO PRN (11:10)
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
[2019-04-30] MEDS: Carisoprodol TAB* 350 MG PO PRN ×2 (15:43→20:57)
[2019-04-30] MEDS: hydrOXYzine HCL TAB* 50 MG PO PRN (15:44)
--- NOTE | 2019-04-30 16:40 | CONS ---
CC: Liu Berry MD * CONSULTATION REPORT: DATE OF CONSULT: 04/30/19 PRIMARY CARE PHYSICIAN: Liu Berry MD REQUESTING PHYSICIAN: DYLAN Green REASON FOR CONSULTATION: Nausea, vomiting. HISTORY OF PRESENT ILLNESS: This is a 54-year-old female with history of multiple TIAs, hypertension, peptic ulcer disease with reported H. pylori who presented to the emergency room on 04/27/19 with suicidal ideations and was admitted voluntarily to the behavioral health unit on 04/28/19. She states for the last 2 years, she has had nausea and vomiting daily in the morning, better with a hot shower. Over the last 10 to 11 days, It has been worse. She uses marijuana on the daily basis. She does admit to NSAID usage including aspirin and occasionally additional ibuprofen. She admits to both dysphagia and pain with swallowing as well. Solids are greater than liquids for the dysphagia. She states this happened after she had a MRSA infection of hardware in her spine , she had difficulty swallowing afterward. This was 4 or 5 years ago. She states that they were not able to eradicate her H. pylori. She also has a history of hepatitis C. She was partially treated, obtaining 1 script for one of the new novel agents, but then failed to follow up for few months and then treatment was not completed and SVR apparently was not able to be achieved. Denies any weight loss or gain. Admits to melena at times. Denies any Pepto- Bismol or iron tablets. She states the stool is occasionally hard. She has not tried anything besides a stool softener to facilitate movement. She denies any active IV drug use history, in the distant of prior cocaine use and nasal illicit substances. Admits to abdominal pain that is fleeting in nature in multiple quadrants, 4/10, nothing makes it better or worse, appears to be worse at times of stress. The remainder of the 14-point review of systems is grossly negative. PAST MEDICAL HISTORY: Multiple TIAs, hypertension, traumatic brain injury in 2016, hepatitis C with reportedly failed treatment due to noncompliance, cervical cancer, history of peptic ulcer disease with prior EGDs in the past, and apparently failed eradication of H. pylori. PAST SURGICAL HISTORY: Cervical spine, lumbar spine, total hysterectomy. MEDICATIONS: Outpatient medications include: 1. Maalox. 2. Albuterol. 3. Aspirin. 4. Atorvastatin. 5. Soma. 6. Clonidine. 7. Depakote. 8. Docusate. 9. Escitalopram. 10. Gabapentin. 11. Hydroxyzine. 12. Lorazepam. 13. Meclizine. 14. Melatonin. 15. Reglan. 16. Metoprolol. 17. Multivitamins. 18. Nicotine patch. 19. Pyridium. 20. Bactrim. DRUG ALLERGIES: BEE VENOM, hives; PENICILLIN, hives; KETAMINE, agitation; MORPHINE, hives; KETOROLAC, vomiting. FAMILY HISTORY: Maternal breast cancer and heart disease. No family history of GI cancer or IBD. SOCIAL HISTORY: She has been a pack a day smoker for 36 years. Uses marijuana daily. Her sister, Kelly Frankel, is her surrogate decision maker if needed. REVIEW OF SYSTEMS: The remainder of the 14-point review of systems is grossly negative except for as described in the HPI. PHYSICAL EXAM: Vital Signs: Blood pressure 120/76, pulse 57, respiratory rate 18, 100% on room air, T-max was 98.9. In general, anxious, no acute distress. HEENT: Atraumatic, normocephalic. Pupils equal, round, and reactive to light. Extraocular movements are intact. Conjunctivae are pink. Sclerae anicteric. Cardiovascular: Regular rate and rhythm. S1, S2. Respiratory: Clear to auscultation bilaterally. Abdomen: Soft, nontender, nondistended. Bowel sounds positive. Extremities: No clubbing, no cyanosis, no edema. Psych: Anxious. At times, pressured speech. DIAGNOSTIC STUDIES/LAB DATA: Hemoglobin 13.5, platelet count 331. Potassium 5.1. Hemoglobin A1c 6. AST 29, ALT 24, alkaline phosphatase 93. TSH 0.52. Urine tox screen was positive for cannabis. ASSESSMENT AND PLAN: This is a 54-year-old female with history of hepatitis C, peptic ulcer disease who is presenting with nausea, vomiting, abdominal pain, now with odynophagia and dysphagia. 1. Odynophagia and dysphagia. She certainly needs an upper endoscopy at some point to evaluate. We will plan on tentatively EGD on 05/01/19. Given some of her medications, pill esophagitis is certainly a possibility. We recommend cessation of NSAID usage outside of the aspirin which may be required. 2. Nausea and vomiting. Prodrome a little bit suspicious for cannabis-induced hyperemesis syndrome. We will plan on EGD to evaluate other etiologies. Discussed doing a full month off cannabis would be helpful in establishing a diagnosis. If ongoing, would consider gastric emptying study for gastroparesis. 3. History of hepatitis C, unsure if she cleared the virus. Would repeat an RNA level to establish if SVR was achieved. [id number]/[facility] #: [id number] [facility]
[2019-04-30 17:47] LABS: ABS Eosinophils 0.2 10^3/ul (0-0.6); ABS Lymphocytes 3.1 10^3/ul (1.0-4.8); ABS Monocytes 0.5 10^3/ul (0-0.8); ABS Neutrophils 2.9 10^3/ul (1.5-7.7); Eosinophil % 2.5 %; Hematocrit 39 % (35-47); Hemoglobin 12.6 g/dL (12.0-16.0); Lymphocyte % 46.5 %; Mean Corpuscular HGB Conc 33 g/dL (31-36); Mean Corpuscular Hemoglobin 29 pg (27-31); Mean Corpuscular Volume 88 fL (80-97); Mean Platelet Volume 7.9 fL (7.4-10.4); Nucleated Red Blood Cells % 0.1; Platelet Count 309 10^3/uL (150-450); Red Blood Count 4.39 10^6 /uL (3.70-4.87); Red Cell Distribution Width 16 % (10-15); White Blood Count 6.7 10^3/uL (3.5-10.8)
[2019-04-30 18:04] LABS: Albumin 3.8 g/dL (3.2-5.2); Albumin/Globulin Ratio 1.3 (1-3); BUN/Creatinine Ratio 25.7 (8-20); Calcium 9.6 mg/dL (8.6-10.3); EGFR African American 69.1 (>60); EGFR Non-African American 57.1 (>60); Globulin 2.9 g/dL (2-4); Potassium 4.7 mmol/L (3.5-5.0); Total Bilirubin 0.3 mg/dL (0.2-1.0); Total Protein 6.7 g/dL (6.4-8.9)
[2019-04-30] MEDS: Atorvastatin* 40 MG TAB PO SCH (20:48)
[2019-04-30] MEDS: Melatonin 3 MG TAB PO SCH (20:51)
[2019-04-30] MEDS: Pantoprazole TAB * 40 MG TAB PO SCH (20:51)
[2019-04-30] MEDS: Nicotine Patch Removal NOTE PATCH OFF SCH (21:05)
--- NOTE | 2019-04-30 21:14 | PN ---
Subjective - Subjective Date of Service: 04/30/19 Service Type: [id number] Hosp care 25 min moderate complexity Subjective: Tracey remains feeling ill. I contacted a hospitalist who rearranged some of her medical meds and ordered a scope for Saturday (05/01/19) at 12:00. Tracey continues to have passive suicidal thoughts and struggles with her medications. As she was recently manic, it is important to include a mood stabilizer for her, but it is unclear how much is actually being absorbed of the Depakote as she is vomiting so frequently. We will change the Depakote to liquid formulation. Objective - General Observations Appearance: Disheveled Appears Stated Age: Yes Stature: Thin Posture: WNL Eye Contact: Average Behavior/Activity: WNL - Interaction Observations Attitude Towards Examiner: Cooperative, Anxious Stated Mood: Dysphoric, Anxious Affect: Full Speech Pattern/Tone: Clear Thought Process: Coherent, Circumstantial Perception: Illusions Thought Content: Preoccupation/Ruminations, Depressive, Self-Deprecatory Thought Process: Lethality: Passive Wish Delusion Type: Denies - Cognitive Function Orientation: A&O x 4 Level of Consciousness: Awake, Alert, Appropriate Cognition: Impaired Memory Estimated Intelligence: Normal Insight: WNL Judgment Within Normal Limits: No Ability to Make Reasonable Decisions: Moderately Impaired - Medication Compliance Cooperative with Inpatient Medication Regimen: Yes - Group Participation Participates in Group Activities: Partial Assessment - Assessment Merits Inpatient Hospitalization: For Immediate Safety Inpatient DSM-V Dx: F31.4 Clinical Impression: Tracey is a 54-year-old woman with a strong history of trauma who is having suicidal thoughts, hallucinations/illusions of voices and animals, and is also physically ill and having difficulty in the outpatient setting with financial stressors which make an impact on her mental health. Plan - Plan Treatment Plan: Name: TRACEY LEWIS Birthdate: 1965 [id number] Enter hospitalist consult in the morning. Continue medications. 04/30/19 Tomorrow follow up with hospitalist recommendations Follow up to determine Depakote liquid tolerance. Continued Medication Management: Different Medication Medications: Current Medications Al Hydrox/Mg Hydrox/Simethicone (Maalox Plus*) 30 ml PO Q4H PRN PRN Reason: INDIGESTION Albuterol (Ventolin Hfa Inhaler*) 2 puff INH Q6H PRN PRN Reason: SHORTNESS OF BREATH Aspirin (Aspirin Ec Tab*) 81 mg PO DAILY [facility] Last Admin: 04/30/19 08:30 Dose: 81 mg Atorvastatin Calcium (Lipitor*) 40 mg PO 1700 [facility] Last Admin: 04/30/19 20:48 Dose: 40 mg Carisoprodol (Soma Tab*) 350 mg PO BID PRN PRN Reason: PAIN MODERATE Last Admin: 04/30/19 20:57 Dose: 350 mg Clonidine HCl (Catapres Tab*) 0.1 mg PO 0700,1200 [facility] Last Admin: 04/30/19 15:46 Dose: Not Given Clonidine HCl (Catapres Tab*) 0.1 mg PO BEDTIME [facility] Last Admin: 04/30/19 20:51 Dose: 0.1 mg Docusate Sodium (Colace Cap*) 100 mg PO DAILY PRN PRN Reason: CONSTIPATION Escitalopram Oxalate (Lexapro *) 20 mg PO DAILY [facility] Last Admin: 04/30/19 08:33 Dose: 20 mg Gabapentin (Neurontin Cap(*)) 800 mg PO BID [facility] Last Admin: 04/30/19 20:50 Dose: 800 mg Hydroxyzine HCl (Atarax Tab*) 50 mg PO Q6H PRN PRN Reason: .ANXIETY Last Admin: 04/30/19 15:44 Dose: 50 mg Lorazepam (Ativan Tab(*)) 1 mg PO Q4H PRN PRN Reason: ANXIETY Last Admin: 04/30/19 20:57 Dose: 1 mg Meclizine HCl (Antivert Tab*) 25 mg PO Q8HR [facility] Last Admin: 04/30/19 20:48 Dose: 25 mg Melatonin (Melatonin) 9 mg PO BEDTIME [facility] Last Admin: 04/30/19 20:51 Dose: 9 mg Metoclopramide HCl (Reglan Liq*) 10 mg PO Q6H PRN PRN Reason: NAUSEA Last Admin: 04/29/19 16:41 Dose: 10 mg Metoprolol Tartrate (Lopressor Tab*) 50 mg PO BID [facility] Last Admin: 04/30/19 20:49 Dose: 50 mg Multivitamins (Theragran Tab*) 1 tab PO DAILY [facility] Last Admin: 04/30/19 08:34 Dose: 1 tab Nicotine (Nicotine Patch 21 Mg/24 Hr*) 1 patch TRANSDERM DAILY [facility] Last Admin: 04/30/19 10:12 Dose: Not Given Nicotine Polacrilex (Nicotine Gum*) 2 mg PO Q2H PRN PRN Reason: CRAVINGS Ondansetron HCl (Zofran Tab*) 4 mg PO Q6H PRN PRN Reason: NAUSEA Pantoprazole Sodium (Protonix Tab*) 40 mg PO BID [facility] Last Admin: 04/30/19 20:51 Dose: 40 mg Pharmacy Profile Note (Nicotine Patch Removal Note*) 1 note PATCH OFF 2099 [facility] Last Admin: 04/30/19 21:05 Dose: Not Given Phenazopyridine HCl (Pyridium Tab*) 200 mg PO TID PRN PRN Reason: urinary pain Trimethoprim/Sulfamethoxazole (Bactrim Ds 800/160 Tab*) 1 tab PO BID [facility] Stop: 05/06/19 09:01 Last Admin: 04/30/19 20:51 Dose: 1 tab Valproic Acid (Depakene Liq(*)) 250 mg PO TID [facility] - Discharge Plan Discharge Plan: Outpatient Follow Up
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
[2019-05-01] MEDS: cloNIDine TAB* 0.1 MG PO SCH ×3 (10:41→22:01)
[2019-05-01] MEDS: Meclizine TAB* 12.5 MG PO SCH ×3 (10:41→22:03)
[2019-05-01] MEDS: Valproic Acid LIQ(*) 250 MG/5 ML UDC PO SCH ×3 (10:41→22:00)
[2019-05-01] MEDS: LORazepam TAB(*) 1 MG PO PRN ×2 (11:57→22:30)
--- NOTE | 2019-05-01 12:31 | PN ---
Subjective - Subjective Date of Service: 05/01/19 Service Type: [id number] Hosp care 15 min low complexity Subjective: Leigh continues with passive suicidal thoughts. She is not very intereted in talking when I meet with her as she is exhausted by her illnesses and preoccupied withher medications. Objective - General Observations Appearance: Disheveled Appears Stated Age: Yes Stature: Thin Posture: Slumped Eye Contact: Avoidant Behavior/Activity: Slowed - Interaction Observations Attitude Towards Examiner: Cooperative, Anxious Stated Mood: Dysphoric, Anxious Affect: Restricted Speech Pattern/Tone: Clear, Quiet Volume Thought Process: Coherent Perception: Derealization, Reexperiencing Thought Content: Preoccupation/Ruminations, Depressive Thought Process: Lethality: Passive Wish Hallucination Type: Auditory, Visual Delusion Type: Denies - Cognitive Function Orientation: A&O x 4 Level of Consciousness: Awake, Alert, Appropriate Cognition: Impaired Cognition, Impaired Attention/Concentration Estimated Intelligence: Normal Insight: Mostly Blames Others for Problems Judgment Within Normal Limits: No Ability to Make Reasonable Decisions: Moderately Impaired - Medication Compliance Cooperative with Inpatient Medication Regimen: Partial - Group Participation Participates in Group Activities: Partial Assessment - Assessment Merits Inpatient Hospitalization: For Immediate Safety Inpatient DSM-V Dx: F31.4 Clinical Impression: Yolande is a 54-year-old woman with a strong history of trauma who is having suicidal thoughts, hallucinations/illusions of voices and animals, and is also physically ill and having difficulty in the outpatient setting with financial stressors which make an impact on her mental health. Plan - Plan Treatment Plan: Name: YOLANDE LEWIS Birthdate: 1965 [id number] Enter hospitalist consult in the morning. Continue medications. 04/30/19 Tomorrow follow up with hospitalist recommendations Follow up to determine Depakote liquid tolerance. 05/01/19 Continue to monitor for suicidal ideation. Continue to provide support for Yolande. Continue to coordinate with hospitalist. Continued Medication Management: Different Medication Medications: Current Medications Al Hydrox/Mg Hydrox/Simethicone (Maalox Plus*) 30 ml PO Q4H PRN PRN Reason: INDIGESTION Albuterol (Ventolin Hfa Inhaler*) 2 puff INH Q6H PRN PRN Reason: SHORTNESS OF BREATH Aspirin (Aspirin Ec Tab*) 81 mg PO DAILY [facility] Last Admin: 04/30/19 08:30 Dose: 81 mg Atorvastatin Calcium (Lipitor*) 40 mg PO 1700 [facility] Last Admin: 04/30/19 20:48 Dose: 40 mg Carisoprodol (Soma Tab*) 350 mg PO BID PRN PRN Reason: PAIN MODERATE Last Admin: 04/30/19 20:57 Dose: 350 mg Clonidine HCl (Catapres Tab*) 0.1 mg PO 0700,1200 [facility] Last Admin: 05/01/19 10:41 Dose: Not Given Clonidine HCl (Catapres Tab*) 0.1 mg PO BEDTIME [facility] Last Admin: 04/30/19 20:51 Dose: 0.1 mg Docusate Sodium (Colace Cap*) 100 mg PO DAILY PRN PRN Reason: CONSTIPATION Escitalopram Oxalate (Lexapro *) 20 mg PO DAILY [facility] Last Admin: 04/30/19 08:33 Dose: 20 mg Gabapentin (Neurontin Cap(*)) 800 mg PO BID [facility] Last Admin: 04/30/19 20:50 Dose: 800 mg Hydroxyzine HCl (Atarax Tab*) 50 mg PO Q6H PRN PRN Reason: .ANXIETY Last Admin: 04/30/19 15:44 Dose: 50 mg Lorazepam (Ativan Tab(*)) 1 mg PO Q4H PRN PRN Reason: ANXIETY Last Admin: 05/01/19 11:57 Dose: 1 mg Meclizine HCl (Antivert Tab*) 25 mg PO Q8HR [facility] Last Admin: 05/01/19 10:41 Dose: Not Given Melatonin (Melatonin) 9 mg PO BEDTIME [facility] Last Admin: 04/30/19 20:51 Dose: 9 mg Metoclopramide HCl (Reglan Liq*) 10 mg PO Q6H PRN PRN Reason: NAUSEA Last Admin: 04/29/19 16:41 Dose: 10 mg Metoprolol Tartrate (Lopressor Tab*) 50 mg PO BID [facility] Last Admin: 04/30/19 20:49 Dose: 50 mg Multivitamins (Theragran Tab*) 1 tab PO DAILY [facility] Last Admin: 04/30/19 08:34 Dose: 1 tab Nicotine (Nicotine Patch 21 Mg/24 Hr*) 1 patch TRANSDERM DAILY [facility] Last Admin: 04/30/19 10:12 Dose: Not Given Nicotine Polacrilex (Nicotine Gum*) 2 mg PO Q2H PRN PRN Reason: CRAVINGS Ondansetron HCl (Zofran Tab*) 4 mg PO Q6H PRN PRN Reason: NAUSEA Pantoprazole Sodium (Protonix Tab*) 40 mg PO BID [facility] Last Admin: 04/30/19 20:51 Dose: 40 mg Pharmacy Profile Note (Nicotine Patch Removal Note*) 1 note PATCH OFF 2100 [facility] Last Admin: 04/30/19 21:05 Dose: Not Given Phenazopyridine HCl (Pyridium Tab*) 200 mg PO TID PRN PRN Reason: urinary pain Trimethoprim/Sulfamethoxazole (Bactrim Ds 800/160 Tab*) 1 tab PO BID [facility] Stop: 05/06/19 09:01 Last Admin: 04/30/19 20:51 Dose: 1 tab Valproic Acid (Depakene Liq(*)) 250 mg PO TID [facility] Last Admin: 05/01/19 10:41 Dose: Not Given - Discharge Plan Discharge Plan: Outpatient Follow Up
[2019-05-01] MEDS ORDERED: fentaNYL* 50 MCG/ML 2 ML VIAL (100 MCG VIAL) ONE (13:16)
[2019-05-01] MEDS ORDERED: Midazolam* 1 MG/ML 10 ML VIAL (10 MG) ONE (13:17)
--- NOTE | 2019-05-01 13:54 | PN ---
Progress Note - Progress Note Date of Service: 05/01/19 Note: PROCEDURE NOTE, 175mcg fent iv, 14 mg versed iv E----no stricture or ring, bx for EoE G----VERY mild antral gastritis, bx for hpylori; doubt this is contributing to her sx D---nml, bx for celiac NORMAL egd; fu bx; advance diet Harsh Song MD [facility]
--- NOTE | 2019-05-01 14:53 | PRO ---
CC: Jai Méndez MD* PROCEDURE REPORT: DATE OF PROCEDURE: 05/01/19 PROCEDURE: EGD. INDICATION: Nausea, vomiting, dysphagia. REFERRING PHYSICIAN: Jai Méndez MD MEDICATIONS GIVEN: 1. 175 mcg IV fentanyl. 2. 14 mg IV Versed. DESCRIPTION OF PROCEDURE: After the EGD procedure including risks, benefits, and alternatives not limited to perforation, surgery, and/or were explained to the patient, written consent was then obtained, IV medication was given, and a bite- block was placed between the teeth. An Olympus gastroscope was then inserted into the patient's mouth, advanced down the esophagus, into the stomach, into the distal duodenum. In the esophagus, at the GE junction, the Z-line was intact. No erosive esophagitis, stricture, or ring was seen. No evidence of eosinophilic esophagitis was seen; however, biopsies were obtained for eosinophilic esophagitis. The scope was advanced through a widely patent GE junction into the body of the stomach. Retroflex view was unremarkable. Forward view also was unremarkable except for extremely mild gastritis. Biopsies were obtained for H. pylori. The scope was advanced through a widely patent pylorus into the duodenal bulb, into the distal duodenum , both of which were unremarkable. Biopsies were obtained for celiac disease. Scope was then withdrawn from the patient. She tolerated the procedure well and was returned to her hospital room in stable condition. IMPRESSION: 1. Complete upper endoscopy into the distal duodenum with biopsies. 2. Very mild antral gastritis, I doubt this is contributing to any of her symptoms. 3. Biopsies for eosinophilic esophagitis, H. pylori, and celiac disease. I will follow up on all the biopsies. [id number]/[facility] #: [id number] [facility]
[2019-05-01] MEDS: Metoprolol Tartrate TAB* 50 mg PO SCH ×2 (15:58→22:01)
[2019-05-01] MEDS: Nicotine PATCH 21 MG/24 HR* PATCH TRANSDERM SCH (16:00)
[2019-05-01] MEDS: Escitalopram * 20 MG TABLET PO SCH (17:35)
[2019-05-01] MEDS: Aspirin EC TAB* 81 MG TAB.EC PO SCH (17:35)
[2019-05-01] MEDS: Atorvastatin* 40 MG TAB PO SCH (17:35)
[2019-05-01] MEDS: Vitamin THERAPEUTIC TAB PO SCH (17:36)
[2019-05-01] MEDS: Sulfamethox/Trimethoprim DS 800/160* TAB PO SCH ×2 (17:38→22:15)
[2019-05-01] MEDS: Pantoprazole TAB * 40 MG TAB PO SCH ×2 (17:38→22:12)
[2019-05-01] MEDS: hydrOXYzine HCL TAB* 50 MG PO PRN (17:40)
[2019-05-01] MEDS: Gabapentin CAP(*) 400 MG PO SCH ×2 (17:42→22:01)
[2019-05-01] MEDS: Melatonin 3 MG TAB PO SCH (22:00)
[2019-05-01] MEDS: Nicotine Patch Removal NOTE PATCH OFF SCH (22:13)
[2019-05-02] MEDS: Pantoprazole TAB * 40 MG TAB PO SCH ×2 (08:49→22:00)
[2019-05-02] MEDS: Gabapentin CAP(*) 400 MG PO SCH ×3 (08:49→21:59)
[2019-05-02] MEDS: LORazepam TAB(*) 1 MG PO PRN ×3 (08:50→19:41)
[2019-05-02] MEDS: Sulfamethox/Trimethoprim DS 800/160* TAB PO SCH ×2 (08:50→22:00)
[2019-05-02] MEDS: Aspirin EC TAB* 81 MG TAB.EC PO SCH (08:50)
[2019-05-02] MEDS: Vitamin THERAPEUTIC TAB PO SCH (08:51)
[2019-05-02] MEDS: cloNIDine TAB* 0.1 MG PO SCH ×3 (08:53→22:01)
[2019-05-02] MEDS: Meclizine TAB* 12.5 MG PO SCH ×3 (08:54→21:59)
[2019-05-02] MEDS: Escitalopram * 20 MG TABLET PO SCH (08:55)
[2019-05-02] MEDS: Valproic Acid LIQ(*) 250 MG/5 ML UDC PO SCH ×3 (08:56→21:59)
[2019-05-02] MEDS: Metoprolol Tartrate TAB* 50 mg PO SCH ×2 (08:56→22:00)
[2019-05-02] MEDS: Nicotine PATCH 21 MG/24 HR* PATCH TRANSDERM SCH (08:56)
--- NOTE | 2019-05-02 15:47 | PN ---
Subjective Date of Service: 05/02/19 Interval History: Patient had some vomiting this AM. She is tolerating food/liquids at other times today. Reports diffuse abdominal pain, low back pain, hip pain. She feels she has been labeled as a pain medication user, but really she has pain that is untreated. She reports constipation, cramps, diarrhea intermittently. Had EGD yesterday. Family History: Unchanged from Admission Social History: Unchanged from Admission Past Medical History: Unchanged from Admission Objective Active Medications: Al Hydrox/Mg Hydrox/Simethicone (Maalox Plus*) 30 ml PO Q4H PRN PRN Reason: INDIGESTION Albuterol (Ventolin Hfa Inhaler*) 2 puff INH Q6H PRN PRN Reason: SHORTNESS OF BREATH Aspirin (Aspirin Ec Tab*) 81 mg PO DAILY [facility] Last Admin: 05/02/19 08:50 Dose: 81 mg Atorvastatin Calcium (Lipitor*) 40 mg PO 1700 [facility] Last Admin: 05/01/19 17:35 Dose: 40 mg Carisoprodol (Soma Tab*) 350 mg PO BID PRN PRN Reason: PAIN MODERATE Last Admin: 04/30/19 20:57 Dose: 350 mg Clonidine HCl (Catapres Tab*) 0.1 mg PO 0700,1200 [facility] Last Admin: 05/02/19 14:18 Dose: 0.1 mg Clonidine HCl (Catapres Tab*) 0.1 mg PO BEDTIME [facility] Last Admin: 05/01/19 22:01 Dose: 0.1 mg Dicyclomine HCl (Bentyl Cap*) 5 mg PO AC PRN PRN Reason: INDIGESTION Docusate Sodium (Colace Cap*) 100 mg PO DAILY PRN PRN Reason: CONSTIPATION Escitalopram Oxalate (Lexapro *) 20 mg PO DAILY [facility] Last Admin: 05/02/19 08:55 Dose: 20 mg Gabapentin (Neurontin Cap(*)) 800 mg PO TID [facility] Last Admin: 05/02/19 14:20 Dose: 800 mg Hydroxyzine HCl (Atarax Tab*) 50 mg PO Q6H PRN PRN Reason: .ANXIETY Last Admin: 05/01/19 17:40 Dose: 50 mg Lorazepam (Ativan Tab(*)) 1 mg PO Q4H PRN PRN Reason: ANXIETY Last Admin: 05/02/19 12:49 Dose: 1 mg Meclizine HCl (Antivert Tab*) 25 mg PO Q8HR [facility] Last Admin: 05/02/19 14:17 Dose: 25 mg Melatonin (Melatonin) 9 mg PO BEDTIME [facility] Last Admin: 05/01/19 22:00 Dose: 9 mg Metoclopramide HCl (Reglan Liq*) 10 mg PO Q6H PRN PRN Reason: NAUSEA Last Admin: 04/29/19 16:41 Dose: 10 mg Metoprolol Tartrate (Lopressor Tab*) 50 mg PO BID [facility] Last Admin: 05/02/19 08:56 Dose: Not Given Multivitamins (Theragran Tab*) 1 tab PO DAILY [facility] Last Admin: 05/02/19 08:51 Dose: 1 tab Nicotine (Nicotine Patch 21 Mg/24 Hr*) 1 patch TRANSDERM DAILY [facility] Last Admin: 05/02/19 08:56 Dose: Not Given Nicotine Polacrilex (Nicotine Gum*) 2 mg PO Q2H PRN PRN Reason: CRAVINGS Ondansetron HCl (Zofran Tab*) 4 mg PO Q6H PRN PRN Reason: NAUSEA Last Admin: 05/02/19 15:27 Dose: 4 mg Pantoprazole Sodium (Protonix Tab*) 40 mg PO BID [facility] Last Admin: 05/02/19 08:49 Dose: 40 mg Pharmacy Profile Note (Nicotine Patch Removal Note*) 1 note PATCH OFF 2100 [facility] Last Admin: 05/01/19 22:13 Dose: Not Given Phenazopyridine HCl (Pyridium Tab*) 200 mg PO TID PRN PRN Reason: urinary pain Trimethoprim/Sulfamethoxazole (Bactrim Ds 800/160 Tab*) 1 tab PO BID [facility] Stop: 05/06/19 09:01 Last Admin: 05/02/19 08:50 Dose: 1 tab Valproic Acid (Depakene Liq(*)) 250 mg PO TID [facility] Last Admin: 05/02/19 14:21 Dose: 250 mg Vital Signs - 8 hr 05/02/19 05/02/19 05/02/19 08:00 08:49 08:50 Temperature 36.8 C Pulse Rate 53 Respiratory 16 16 16 Rate Blood Pressure 146/89 (mmHg) O2 Sat by Pulse 100 Oximetry 05/02/19 05/02/19 05/02/19 12:49 14:11 14:20 Temperature Pulse Rate 66 Respiratory 18 20 18 Rate Blood Pressure 146/93 (mmHg) O2 Sat by Pulse 100 Oximetry Oxygen Devices in Use Now: None Appearance: awake and alert Eyes: No Scleral Icterus Ears/Nose/Mouth/Throat: Clear Oropharnyx Neck: No Thyroid Enlargement, Masses Respiratory: Symmetrical Chest Expansion and Respiratory Effort, Clear to Auscultation Cardiovascular: NL Sounds; No Murmurs; No JVD, RRR Abdominal: NL Sounds; No Tenderness; No Distention, No Hepatosplenomegaly, - Lymphatic: No Cervical Adenopathy Neurological: Alert and Oriented x 3 Lines/Tubes/Other Access: Clean, Dry and Intact Peripheral IV Nutrition: Taking PO's Result Diagrams: 04/30/19 17:38 04/30/19 17:38 Additional Lab and Data: EGD w/ mild gastritis; biopsy and H pylori stain pending Assess/Plan/Problems-Billing Assessment: 54 yof PMHx multiple TIAs, HTN, TBI, HFV, PUD with reported treatment resistance H. pyori presents with abdominal pain, n/v. - Patient Problems (1) Gastritis Current Visit: Yes Status: Acute Priority: Medium Code(s): K29.70 - GASTRITIS, UNSPECIFIED, WITHOUT BLEEDING SNOMED Code(s): 1672274 Comment: -Continue protonix -Will follow other EGD results/biopsy (2) Abdominal pain Current Visit: Yes Status: Acute Priority: Medium Code(s): R10.9 - UNSPECIFIED ABDOMINAL PAIN SNOMED Code(s): 16613695 Comment: - IBS fits picture best, could be medication side effects. - Will try PRN dicyclomine - Will need PCP follow-up Status and Disposition: Inpatient. Discharge per [facility].
[2019-05-02] MEDS: Dicyclomine CAP* 10 MG PO PRN (16:14)
[2019-05-02] MEDS: hydrOXYzine HCL TAB* 50 MG PO PRN (16:14)
[2019-05-02] MEDS: Atorvastatin* 40 MG TAB PO SCH (17:31)
[2019-05-02] MEDS: Carisoprodol TAB* 350 MG PO PRN (17:31)
[2019-05-02] MEDS: Melatonin 3 MG TAB PO SCH (21:59)
[2019-05-02] MEDS: Nicotine Patch Removal NOTE PATCH OFF SCH (23:29)
[2019-05-03] MEDS: Metoprolol Tartrate TAB* 50 mg PO SCH ×2 (09:12→22:18)
[2019-05-03] MEDS: cloNIDine TAB* 0.1 MG PO SCH ×3 (09:12→22:18)
[2019-05-03] MEDS: Aspirin EC TAB* 81 MG TAB.EC PO SCH (09:13)
[2019-05-03] MEDS: Gabapentin CAP(*) 400 MG PO SCH ×3 (09:13→22:16)
[2019-05-03] MEDS: Nicotine PATCH 21 MG/24 HR* PATCH TRANSDERM SCH (09:14)
[2019-05-03] MEDS: Pantoprazole TAB * 40 MG TAB PO SCH ×2 (09:14→22:19)
[2019-05-03] MEDS: Meclizine TAB* 12.5 MG PO SCH ×3 (09:15→22:17)
[2019-05-03] MEDS: Valproic Acid LIQ(*) 250 MG/5 ML UDC PO SCH ×3 (09:16→22:17)
[2019-05-03] MEDS: Sulfamethox/Trimethoprim DS 800/160* TAB PO SCH (09:18)
[2019-05-03] MEDS: Vitamin THERAPEUTIC TAB PO SCH (09:18)
[2019-05-03] MEDS: Escitalopram * 20 MG TABLET PO SCH (09:27)
[2019-05-03] MEDS: Atorvastatin* 40 MG TAB PO SCH (17:27)
[2019-05-03] MEDS: LORazepam TAB(*) 1 MG PO PRN (17:27)
[2019-05-03] MEDS: Dicyclomine CAP* 10 MG PO PRN (17:55)
--- NOTE | 2019-05-03 17:58 | PN ---
Subjective Date of Service: 05/03/19 Interval History: Patient has no new complaints. She fell this morning in bathroom, no injury. States she had nausea, vomiting this AM, but tolerating coffee/pizza this afternoon. She tried dicyclomine this afternoon but she does not remember it helping. Family History: Unchanged from Admission Social History: Unchanged from Admission Past Medical History: Unchanged from Admission Objective Active Medications: Al Hydrox/Mg Hydrox/Simethicone (Maalox Plus*) 30 ml PO Q4H PRN PRN Reason: INDIGESTION Last Admin: 05/02/19 19:41 Dose: 30 ml Albuterol (Ventolin Hfa Inhaler*) 2 puff INH Q6H PRN PRN Reason: SHORTNESS OF BREATH Aspirin (Aspirin Ec Tab*) 81 mg PO DAILY [facility] Last Admin: 05/03/19 09:13 Dose: 81 mg Atorvastatin Calcium (Lipitor*) 40 mg PO 1700 [facility] Last Admin: 05/03/19 17:27 Dose: 40 mg Carisoprodol (Soma Tab*) 350 mg PO BID PRN PRN Reason: PAIN MODERATE Last Admin: 05/02/19 17:31 Dose: 350 mg Clonidine HCl (Catapres Tab*) 0.1 mg PO 0700,1200 [facility] Last Admin: 05/03/19 13:35 Dose: 0.1 mg Clonidine HCl (Catapres Tab*) 0.1 mg PO BEDTIME [facility] Last Admin: 05/02/19 22:01 Dose: Not Given Dicyclomine HCl (Bentyl Cap*) 10 mg PO AC PRN PRN Reason: INDIGESTION Last Admin: 05/02/19 16:14 Dose: 10 mg Docusate Sodium (Colace Cap*) 100 mg PO DAILY PRN PRN Reason: CONSTIPATION Escitalopram Oxalate (Lexapro *) 20 mg PO DAILY [facility] Last Admin: 05/03/19 09:27 Dose: 20 mg Gabapentin (Neurontin Cap(*)) 800 mg PO TID [facility] Last Admin: 05/03/19 14:31 Dose: 800 mg Hydroxyzine HCl (Atarax Tab*) 50 mg PO Q6H PRN PRN Reason: .ANXIETY Last Admin: 05/02/19 16:14 Dose: 50 mg Lorazepam (Ativan Tab(*)) 1 mg PO Q4H PRN PRN Reason: ANXIETY Last Admin: 05/03/19 17:27 Dose: 1 mg Meclizine HCl (Antivert Tab*) 25 mg PO Q8HR [facility] Last Admin: 05/03/19 14:31 Dose: 25 mg Melatonin (Melatonin) 9 mg PO BEDTIME [facility] Last Admin: 05/02/19 21:59 Dose: 9 mg Metoclopramide HCl (Reglan Liq*) 10 mg PO Q6H PRN PRN Reason: NAUSEA Last Admin: 04/29/19 16:41 Dose: 10 mg Metoprolol Tartrate (Lopressor Tab*) 50 mg PO BID [facility] Last Admin: 05/03/19 09:12 Dose: 50 mg Multivitamins (Theragran Tab*) 1 tab PO DAILY [facility] Last Admin: 05/03/19 09:18 Dose: 1 tab Nicotine (Nicotine Patch 21 Mg/24 Hr*) 1 patch TRANSDERM DAILY [facility] Last Admin: 05/03/19 09:14 Dose: Not Given Nicotine Polacrilex (Nicotine Gum*) 2 mg PO Q2H PRN PRN Reason: CRAVINGS Ondansetron HCl (Zofran Tab*) 4 mg PO Q6H PRN PRN Reason: NAUSEA Last Admin: 05/02/19 15:27 Dose: 4 mg Pantoprazole Sodium (Protonix Tab*) 40 mg PO BID [facility] Last Admin: 05/03/19 09:14 Dose: 40 mg Pharmacy Profile Note (Nicotine Patch Removal Note*) 1 note PATCH OFF 2100 [facility] Last Admin: 05/02/19 23:29 Dose: Not Given Phenazopyridine HCl (Pyridium Tab*) 200 mg PO TID PRN PRN Reason: urinary pain Trimethoprim/Sulfamethoxazole (Bactrim Ds 800/160 Tab*) 1 tab PO BID [facility] Stop: 05/06/19 09:01 Last Admin: 05/03/19 09:18 Dose: 1 tab Valproic Acid (Depakene Liq(*)) 250 mg PO TID [facility] Last Admin: 05/03/19 14:32 Dose: 250 mg Vital Signs - 8 hr 05/03/19 05/03/19 05/03/19 10:23 13:34 14:31 Temperature Pulse Rate 62 Respiratory 15 15 18 Rate Blood Pressure 105/72 (mmHg) O2 Sat by Pulse 100 Oximetry 05/03/19 05/03/19 05/03/19 14:36 16:00 17:27 Temperature Pulse Rate 62 Respiratory 18 18 16 Rate Blood Pressure 96/66 (mmHg) O2 Sat by Pulse 98 Oximetry Oxygen Devices in Use Now: None Appearance: alert, in bed, no distress Eyes: No Scleral Icterus Respiratory: Clear to Auscultation Cardiovascular: NL Sounds; No Murmurs; No JVD Abdominal: NL Sounds; No Tenderness; No Distention Neurological: Alert and Oriented x 3 Nutrition: Taking PO's Result Diagrams: 04/30/19 17:38 04/30/19 17:38 Additional Lab and Data: EGD w/ mild gastritis; biopsy and H pylori stain pending Assess/Plan/Problems-Billing Assessment: 54 yof PMHx multiple TIAs, HTN, TBI, HFV, PUD with reported treatment resistance H. pyori presents with abdominal pain, n/v. - Patient Problems (1) Gastritis Current Visit: Yes Status: Acute Priority: Medium Code(s): K29.70 - GASTRITIS, UNSPECIFIED, WITHOUT BLEEDING SNOMED Code(s): 7207475 Comment: -Continue protonix -Will follow other EGD results/biopsy (2) Abdominal pain Current Visit: Yes Status: Acute Priority: Medium Code(s): R10.9 - UNSPECIFIED ABDOMINAL PAIN SNOMED Code(s): 29845163 Comment: - somatic complaints predominate - advise psychiatry to reduce medication if possible. - IBS fits picture best, could be medication side effects. - Will contiune PRN dicyclomine - Will need PCP follow-up (3) UTI (urinary tract infection) Current Visit: No Status: Acute Priority: Medium Comment: -Urine culture is negative -Will discontinue Bactrim Status and Disposition: Inpatient. Discharge per [facility].
--- NOTE | 2019-05-03 20:27 | PN ---
Subjective - Subjective Date of Service: 05/03/19 Service Type: [id number] Hosp care 25 min moderate complexity Subjective: Saw patient multiple time during the weekend mostly because of physical complaints and fall. She continues to complain of multiple physical health complaints without any physical or lab. evidence so far. Continues to vomit once or twice daily, incontinent both fecal and urinary, dizzy, nauseous and the list goes on. Awaiting endoscopy report. Mood appears euthymic and denies SI or HI or hallucinations. Thoughts are well organized. Objective - General Observations Appearance: Neat, Well Groomed Appears Stated Age: Yes Stature: WNL Posture: WNL Eye Contact: Average Behavior/Activity: WNL - Interaction Observations Attitude Towards Examiner: Cooperative Stated Mood: Euthymic Affect: Full Speech Pattern/Tone: Clear Thought Process: Coherent, Over Inclusive Thought Content: WNL Hallucination Type: None, Denies Delusion Type: Denies - Cognitive Function Orientation: A&O x 4 Level of Consciousness: Awake, Alert, Appropriate Cognition: WNL Estimated Intelligence: Normal Judgment Within Normal Limits: No Ability to Make Reasonable Decisions: Moderately Impaired - Medication Compliance Cooperative with Inpatient Medication Regimen: Yes - Group Participation Participates in Group Activities: No Assessment - Assessment Merits Inpatient Hospitalization: For Immediate Safety, Diagnosis Determination , Pending Safe DC Plan Inpatient DSM-V Dx: F31.4 Clinical Impression: Tracey is a 54-year-old woman with a strong history of trauma who is having suicidal thoughts, hallucinations/illusions of voices and animals, and is also physically ill and having difficulty in the outpatient setting with financial stressors which make an impact on her mental health. Plan - Plan Treatment Plan: Name: TRACEY LEWIS Birthdate: 1965 [id number] Enter hospitalist consult in the morning. Continue medications. 04/30/19 Tomorrow follow up with hospitalist recommendations Follow up to determine Depakote liquid tolerance. 05/01/19 Continue to monitor for suicidal ideation. Continue to provide support for Tracey. Continue to coordinate with hospitalist. Continued Medication Management: Continue Outpt Medication Medications: Current Medications Al Hydrox/Mg Hydrox/Simethicone (Maalox Plus*) 30 ml PO Q4H PRN PRN Reason: INDIGESTION Last Admin: 05/02/19 19:41 Dose: 30 ml Albuterol (Ventolin Hfa Inhaler*) 2 puff INH Q6H PRN PRN Reason: SHORTNESS OF BREATH Aspirin (Aspirin Ec Tab*) 81 mg PO DAILY [facility] Last Admin: 05/03/19 09:13 Dose: 81 mg Atorvastatin Calcium (Lipitor*) 40 mg PO 1700 [facility] Last Admin: 05/03/19 17:27 Dose: 40 mg Carisoprodol (Soma Tab*) 350 mg PO BID PRN PRN Reason: PAIN MODERATE Last Admin: 05/02/19 17:31 Dose: 350 mg Clonidine HCl (Catapres Tab*) 0.1 mg PO 0700,1200 [facility] Last Admin: 05/03/19 13:35 Dose: 0.1 mg Clonidine HCl (Catapres Tab*) 0.1 mg PO BEDTIME [facility] Last Admin: 05/02/19 22:01 Dose: Not Given Dicyclomine HCl (Bentyl Cap*) 10 mg PO AC PRN PRN Reason: INDIGESTION Last Admin: 05/03/19 17:55 Dose: 10 mg Docusate Sodium (Colace Cap*) 100 mg PO DAILY PRN PRN Reason: CONSTIPATION Escitalopram Oxalate (Lexapro *) 20 mg PO DAILY [facility] Last Admin: 05/03/19 09:27 Dose: 20 mg Gabapentin (Neurontin Cap(*)) 800 mg PO TID [facility] Last Admin: 05/03/19 14:31 Dose: 800 mg Hydroxyzine HCl (Atarax Tab*) 50 mg PO Q6H PRN PRN Reason: .ANXIETY Last Admin: 05/02/19 16:14 Dose: 50 mg Lorazepam (Ativan Tab(*)) 1 mg PO Q4H PRN PRN Reason: ANXIETY Last Admin: 05/03/19 17:27 Dose: 1 mg Meclizine HCl (Antivert Tab*) 25 mg PO Q8HR [facility] Last Admin: 05/03/19 14:31 Dose: 25 mg Melatonin (Melatonin) 9 mg PO BEDTIME [facility] Last Admin: 05/02/19 21:59 Dose: 9 mg Metoclopramide HCl (Reglan Liq*) 10 mg PO Q6H PRN PRN Reason: NAUSEA Last Admin: 04/29/19 16:41 Dose: 10 mg Metoprolol Tartrate (Lopressor Tab*) 50 mg PO BID [facility] Last Admin: 05/03/19 09:12 Dose: 50 mg Multivitamins (Theragran Tab*) 1 tab PO DAILY [facility] Last Admin: 05/03/19 09:18 Dose: 1 tab Nicotine (Nicotine Patch 21 Mg/24 Hr*) 1 patch TRANSDERM DAILY [facility] Last Admin: 05/03/19 09:14 Dose: Not Given Nicotine Polacrilex (Nicotine Gum*) 2 mg PO Q2H PRN PRN Reason: CRAVINGS Ondansetron HCl (Zofran Tab*) 4 mg PO Q6H PRN PRN Reason: NAUSEA Last Admin: 05/02/19 15:27 Dose: 4 mg Pantoprazole Sodium (Protonix Tab*) 40 mg PO BID [facility] Last Admin: 05/03/19 09:14 Dose: 40 mg Pharmacy Profile Note (Nicotine Patch Removal Note*) 1 note PATCH OFF 2100 [facility] Last Admin: 05/02/19 23:29 Dose: Not Given Valproic Acid (Depakene Liq(*)) 250 mg PO TID [facility] Last Admin: 05/03/19 14:32 Dose: 250 mg - Discharge Plan Discharge Plan: Outpatient Follow Up Outpatient Program: [facility]
[2019-05-03] MEDS: Melatonin 3 MG TAB PO SCH (22:19)
[2019-05-04] MEDS: Nicotine Patch Removal NOTE PATCH OFF SCH ×2 (05:20→21:25)
[2019-05-04] MEDS: cloNIDine TAB* 0.1 MG PO SCH ×3 (09:18→21:21)
[2019-05-04] MEDS: Aspirin EC TAB* 81 MG TAB.EC PO SCH (09:29)
[2019-05-04] MEDS: Vitamin THERAPEUTIC TAB PO SCH (09:29)
[2019-05-04] MEDS: Pantoprazole TAB * 40 MG TAB PO SCH (09:29)
[2019-05-04] MEDS: Gabapentin CAP(*) 400 MG PO SCH ×3 (09:29→21:19)
[2019-05-04] MEDS: Nicotine PATCH 21 MG/24 HR* PATCH TRANSDERM SCH (09:31)
[2019-05-04] MEDS: Escitalopram * 20 MG TABLET PO SCH (09:31)
[2019-05-04] MEDS: Metoprolol Tartrate TAB* 50 mg PO SCH ×2 (09:31→21:20)
[2019-05-04] MEDS: Meclizine TAB* 12.5 MG PO SCH ×3 (09:32→21:19)
[2019-05-04] MEDS: Valproic Acid LIQ(*) 250 MG/5 ML UDC PO SCH ×3 (09:32→21:18)
[2019-05-04] MEDS: Dicyclomine CAP* 10 MG PO PRN (11:45)
[2019-05-04] MEDS: hydrOXYzine HCL TAB* 50 MG PO PRN ×2 (12:20→21:20)
--- NOTE | 2019-05-04 13:07 | PN ---
Progress Note - Progress Note Date of Service: 05/04/19 Note: We will be happy to see this patient again at your request. She has hepatitis C and should be referred to Dr. Olivera on discharge for treatment.
[2019-05-04] MEDS: Carisoprodol TAB* 350 MG PO PRN (15:00)
[2019-05-04] MEDS: Atorvastatin* 40 MG TAB PO SCH (17:35)
--- NOTE | 2019-05-04 18:42 | PN ---
Subjective - Subjective Date of Service: 05/04/19 Service Type: 78092 Hosp care 25 min moderate complexity Subjective: Tracey appears to in her usual state with multiple physical complaints being monitored by Hospitalists' service. Happy with her body guards as she calls them (1:1 staff). Objective - General Observations Appearance: Neat Appears Stated Age: Yes Stature: WNL Posture: WNL Eye Contact: Average Behavior/Activity: WNL - Interaction Observations Attitude Towards Examiner: Cooperative Stated Mood: Euthymic Affect: Bright Speech Pattern/Tone: Clear, Appropriate Thought Process: Coherent, Goal Directed Perception: WNL Thought Content: WNL Hallucination Type: Denies Delusion Type: Denies - Cognitive Function Orientation: A&O x 4 Level of Consciousness: Awake, Alert, Appropriate Cognition: WNL Estimated Intelligence: Normal Insight: Mostly Blames Others for Problems Judgment Within Normal Limits: No - Medication Compliance Cooperative with Inpatient Medication Regimen: Yes - Group Participation Participates in Group Activities: No Assessment - Assessment Merits Inpatient Hospitalization: For Stabilization, Diagnosis Determination - May be a Somatiza tion D/O, For Discharge Planning Inpatient DSM-V Dx: F31.4 Clinical Impression: Tracey is a 54-year-old woman with a strong history of trauma who is having suicidal thoughts, hallucinations/illusions of voices and animals, and is also physically ill and having difficulty in the outpatient setting with financial stressors which make an impact on her mental health. Plan - Plan Treatment Plan: Name: TRACEY LEWIS Birthdate: 1965 [id number] Enter hospitalist consult in the morning. Continue medications. 04/30/19 Tomorrow follow up with hospitalist recommendations Follow up to determine Depakote liquid tolerance. 05/01/19 Continue to monitor for suicidal ideation. Continue to provide support for Tracey. Continue to coordinate with hospitalist. Continued Medication Management: Continue Outpt Medication Medications: Current Medications Al Hydrox/Mg Hydrox/Simethicone (Maalox Plus*) 30 ml PO Q4H PRN PRN Reason: INDIGESTION Last Admin: 05/02/19 19:41 Dose: 30 ml Albuterol (Ventolin Hfa Inhaler*) 2 puff INH Q6H PRN PRN Reason: SHORTNESS OF BREATH Aspirin (Aspirin Ec Tab*) 81 mg PO DAILY [facility] Last Admin: 05/04/19 09:29 Dose: 81 mg Atorvastatin Calcium (Lipitor*) 40 mg PO 1700 [facility] Last Admin: 05/04/19 17:35 Dose: 40 mg Carisoprodol (Soma Tab*) 350 mg PO BID PRN PRN Reason: PAIN MODERATE Last Admin: 05/04/19 15:00 Dose: 350 mg Clonidine HCl (Catapres Tab*) 0.1 mg PO 0700,1200 [facility] Last Admin: 05/04/19 11:47 Dose: 0.1 mg Clonidine HCl (Catapres Tab*) 0.1 mg PO BEDTIME [facility] Last Admin: 05/03/19 22:18 Dose: Not Given Dicyclomine HCl (Bentyl Cap*) 10 mg PO AC PRN PRN Reason: INDIGESTION Last Admin: 05/04/19 11:45 Dose: 10 mg Docusate Sodium (Colace Cap*) 100 mg PO DAILY PRN PRN Reason: CONSTIPATION Escitalopram Oxalate (Lexapro *) 20 mg PO DAILY [facility] Last Admin: 05/04/19 09:31 Dose: 20 mg Gabapentin (Neurontin Cap(*)) 800 mg PO TID [facility] Last Admin: 05/04/19 14:53 Dose: 800 mg Hydroxyzine HCl (Atarax Tab*) 50 mg PO Q6H PRN PRN Reason: .ANXIETY Last Admin: 05/04/19 12:20 Dose: 50 mg Lorazepam (Ativan Tab(*)) 1 mg PO Q4H PRN PRN Reason: ANXIETY Last Admin: 05/03/19 17:27 Dose: 1 mg Meclizine HCl (Antivert Tab*) 25 mg PO Q8HR [facility] Last Admin: 05/04/19 14:54 Dose: 25 mg Melatonin (Melatonin) 9 mg PO BEDTIME [facility] Last Admin: 05/03/19 22:19 Dose: 9 mg Metoclopramide HCl (Reglan Liq*) 10 mg PO Q6H PRN PRN Reason: NAUSEA Last Admin: 04/29/19 16:41 Dose: 10 mg Metoprolol Tartrate (Lopressor Tab*) 50 mg PO BID [facility] Last Admin: 05/04/19 09:31 Dose: Not Given Multivitamins (Theragran Tab*) 1 tab PO DAILY [facility] Last Admin: 05/04/19 09:29 Dose: 1 tab Nicotine (Nicotine Patch 21 Mg/24 Hr*) 1 patch TRANSDERM DAILY [facility] Last Admin: 05/04/19 09:31 Dose: Not Given Nicotine Polacrilex (Nicotine Gum*) 2 mg PO Q2H PRN PRN Reason: CRAVINGS Ondansetron HCl (Zofran Tab*) 4 mg PO Q6H PRN PRN Reason: NAUSEA Last Admin: 05/02/19 15:27 Dose: 4 mg Pantoprazole Sodium (Protonix Tab*) 40 mg PO DAILY [facility] Pharmacy Profile Note (Nicotine Patch Removal Note*) 1 note PATCH OFF 2099 [facility] Last Admin: 05/04/19 05:20 Dose: Not Given Valproic Acid (Depakene Liq(*)) 250 mg PO TID [facility] Last Admin: 05/04/19 14:52 Dose: 250 mg - Discharge Plan Discharge Plan: Outpatient Follow Up Outpatient Program: [facility]
[2019-05-04] MEDS: Melatonin 3 MG TAB PO SCH (21:20)
[2019-05-05] MEDS: LORazepam TAB(*) 1 MG PO PRN (07:12)
[2019-05-05] MEDS: cloNIDine TAB* 0.1 MG PO SCH ×2 (07:12→12:22)
[2019-05-05] MEDS: Meclizine TAB* 12.5 MG PO SCH (07:13)
[2019-05-05] MEDS ORDERED: Pantoprazole TAB * 40 MG TAB PO SCH (09:00)
[2019-05-05] MEDS: Valproic Acid LIQ(*) 250 MG/5 ML UDC PO SCH (09:29)
[2019-05-05] MEDS: Metoprolol Tartrate TAB* 50 mg PO SCH (09:29)
[2019-05-05] MEDS: Nicotine PATCH 21 MG/24 HR* PATCH TRANSDERM SCH (09:29)
[2019-05-05] MEDS: Carisoprodol TAB* 350 MG PO PRN (09:29)
[2019-05-05] MEDS: Gabapentin CAP(*) 400 MG PO SCH (09:29)
[2019-05-05] MEDS: Escitalopram * 20 MG TABLET PO SCH (09:30)
[2019-05-05] MEDS: Vitamin THERAPEUTIC TAB PO SCH (09:30)
[2019-05-05] MEDS: Aspirin EC TAB* 81 MG TAB.EC PO SCH (09:30)
[2019-05-05 12:28] VITALS: BP 110/66
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
== END 2019-05-05 13:50 | disposition home or self-care (01) | DRG 885 ==
LOC: ED 12:45 → BSU 17:22
PROVIDERS: ADMIT Psychiatry & Neurology Psychiatry; ATTEND Psychiatry & Neurology Psychiatry
PROC: 0DD98ZX Extraction of Duodenum, Via Natural or Artificial Opening Endoscopic, Diagnostic (ICD-10-PCS; principal; 2019-05-01)
PROC: 0DD68ZX Extraction of Stomach, Via Natural or Artificial Opening Endoscopic, Diagnostic (ICD-10-PCS; 2019-05-01)
PROC: 0DD58ZX Extraction of Esophagus, Via Natural or Artificial Opening Endoscopic, Diagnostic (ICD-10-PCS; 2019-05-01)
DX: F31.4 Bipolar disorder, current episode depressed, severe, without psychotic features (principal); R45.851 Suicidal ideations; F43.10 Post-traumatic stress disorder, unspecified; F12.90 Cannabis use, unspecified, uncomplicated; B19.20 Unspecified viral hepatitis C without hepatic coma; I10 Essential (primary) hypertension; R13.10 Dysphagia, unspecified; F17.210 Nicotine dependence, cigarettes, uncomplicated; R11.2 Nausea with vomiting, unspecified; K27.9 Peptic ulcer, site unspecified, unspecified as acute or chronic, without hemorrhage or perforation; K29.70 Gastritis, unspecified, without bleeding; E78.5 Hyperlipidemia, unspecified; W18.30XA Fall on same level, unspecified, initial encounter; Y92.231 Patient bathroom in hospital as the place of occurrence of the external cause; Z87.820 Personal history of traumatic brain injury; Z85.41 Personal history of malignant neoplasm of cervix uteri; Z86.14 Personal history of Methicillin resistant Staphylococcus aureus infection; Z79.899 Other long term (current) drug therapy; Z88.0 Allergy status to penicillin; Z88.8 Allergy status to other drugs, medicaments and biological substances; Z91.030 Bee allergy status; Z81.8 Family history of other mental and behavioral disorders; Z81.1 Family history of alcohol abuse and dependence; Z82.49 Family history of ischemic heart disease and other diseases of the circulatory system; Z80.3 Family history of malignant neoplasm of breast; Z82.3 Family history of stroke
CPT/HCPCS: 36415; 80053; 80061; 80307; 80320; 80329; 81003; 81015; 83036; 84443; 85025; 87077; 87086; 87522; 88305; 90853; 99156; 99157; 99222; 99231; 99232; 99238; 99284; A9270-GY; G0480; J2250; J3010